=== PATIENT | female | born 1935 | race Caucasian/White ===

== ENCOUNTER 2017-07-30 13:06 | Inpatient (IN) | payer BC, OTHER ==
[~2017-07-30] VITALS: Ht 165.1 cm; Wt 61.3 kg
[2017-07-30] MEDS ORDERED: ONDANSETRON HCL/PF 4 MG/2 ML VIAL ONE (13:19)
--- NOTE | 2017-07-30 13:22 | NUR ---
EKG IN PROGRESS
[2017-07-30 13:29] LABS: BASOPHILS # (AUTO) 0.1 /CMM (0.0-0.2); BASOPHILS % (AUTO) 0.3 % (0.0-2.0); EOSINOPHILS % (AUTO) 0.1 % (0.0-6.0); HEMATOCRIT 45 % (33-45); HEMOGLOBIN 15.4 g/dL (11.5-14.8); LYMPHOCYTES # (AUTO) 0.4 /CMM (0.8-4.8); LYMPHOCYTES % (AUTO) 1.6 % (20.0-44.0); MEAN CORPUSCULAR HEMOGLOBIN 28 PG (26.0-33.0); MEAN CORPUSCULAR HGB CONC 35 g/dl (31.0-36.0); MEAN CORPUSCULAR VOLUME 81 fL (82-100); NEUTROPHILS # (AUTO) 24.6 /CMM (1.8-8.9); PLATELET COUNT (AUTO) 396 /CMM (150-450); RDW COEFFICIENT OF VARIATION 12.8 (11.5-15.0); RED BLOOD CELL COUNT(AUTO) 5.55 MIL/uL (4.0-5.2); WHITE BLOOD COUNT (AUTO) 26.1 K/uL (4.3-11.0)
[2017-07-30] MEDS ORDERED: ONDANSETRON HCL/PF 4 MG/2 ML VIAL IVP ONE (13:30)
[2017-07-30] MEDS ORDERED: IV NS 0.9% 1,000 ML BAG IV ONE ×3 (13:30→15:00)
--- NOTE | 2017-07-30 13:30 | NUR ---
Pt BIB [facility], reports pt has had n/v since 2299 last night. Pt alert but not oriented.
[2017-07-30 13:42] LABS: INR 0.98 (0.87-1.13); PROTHROMBIN TIME 10.2 SECS (9.5-12.7)
[2017-07-30 13:44] LABS: CALCIUM, SERUM 9.8 mg/dL (8.5-10.1); CARBON DIOXIDE 22 mmol/L (21-32); CHLORIDE 101 mmol/L (98-107); CREATININE 1.7 mg/dL (0.6-1.3); GLUCOSE 268 mg/dL (74-106); POTASSIUM 4.5 mmol/L (3.5-5.1); SODIUM SERUM 136 mmol/L (136-145); UREA NITROGEN, BLOOD 49 mg/dL (7-18)
[2017-07-30 13:48] LABS: TROPONIN I 0.062 ng/mL (0.00-0.056)
[2017-07-30 13:50] LABS: ALANINE AMINOTRANSFERASE 67 U/L (12-78); ALBUMIN 3.1 g/dL (3.4-5.0); ALKALINE PHOSPHATASE 93 U/L (46-116); ASPARTATE AMINOTRANSFERASE 62 U/L (15-37); BILIRUBIN,DIRECT 0.1 mg/dL (0.0-0.2); BILIRUBIN,TOTAL 0.4 mg/dL (0.2-1.0); TOTAL PROTEIN, SERUM 7.7 g/dL (6.4-8.2)
--- NOTE | 2017-07-30 14:02 | NUR ---
Pt now A&Ox2, alert and answering questions, currently no nausea. Pt denies CP, SOB, dizziness, n/v, no other complaints, no distress noted.
[2017-07-30 14:39] LABS: APPEARANCE,URINE Cloudy (CLEAR); BILIRUBIN,URINE SMALL (NEGATIVE); BLOOD, URINE Moderate Ery/uL (NEGATIVE); COLOR,URINE Dark (YELLOW); KETONES,URINE 15 (NEGATIVE); LEUKOCYTE ESTERASE ,URINE Small (NEGATIVE); NITRITE, URINE Positive (NEGATIVE); PROTEIN,URINE 100 mg/dl (NEGATIVE); UGLUCOSE 100 MG/DL mg/dL (NEGATIVE)
[2017-07-30 14:54] LABS: BACTERIA,URINE 4+ /HPF (None Seen); SQUAMOUS EPITHELIAL CELL,UR Few /HPF (None Seen)
[2017-07-30] MEDS ORDERED: VANCOMYCIN 1 GM in IV D5W 250 ML IV ONE (15:00)
[2017-07-30] MEDS ORDERED: CEFEPIME 1 GM in IV D5W 50 ML IV ONE (15:00)
--- NOTE | 2017-07-30 15:49 | NUR ---
Called report to floor.
[2017-07-30] MEDS ORDERED: IOHEXOL-350 100 ML VIAL IV ONE (16:12)
[2017-07-30] MEDS ORDERED: IV NS 0.9% 250 ML IV ONE (16:13)
--- NOTE | 2017-07-30 16:30 | NUR ---
Pt taken to [facility]
[2017-07-30] MEDS ORDERED: ENOXAPARIN SODIUM 60 MG/0.6 ML DISP.SYRIN SQ STA (17:39)
[2017-07-30] MEDS ORDERED: ENOXAPARIN SODIUM 60 MG/0.6 ML DISP.SYRIN SQ ONE ×2 (18:14→22:31)
--- NOTE | 2017-07-30 18:30 | NUR ---
Called report to Sharmila.
--- NOTE | 2017-07-30 18:34 | NUR ---
Pt's daughter, Altagracia,
--- NOTE | 2017-07-30 19:00 | NUR ---
DEEPAK RN NOTES PATIENT RECEIVED FROM ER, REPORT OBTAINED BY CHARGE NURSE NIGEL, PATIENT NOW BEING TAKEN TO V/Q NUCLEAR MEDICINE WILL ACCOMPANY PATIENT AND ENDORSE TO VISUAL LEAD. NO SIGNS OF DISTRESS SR 90S ON MONITOR AND SATURATING 98%.
[2017-07-30 20:00] VITALS: BP 119/68
--- NOTE | 2017-07-30 20:00 | NUR ---
RN INITIAL NOTES RECEIVED PT RESTING IN BED, PT A&0X1-2. ON 2L NC NO SOB OR DISTRESS NOTED. SR ON THE TELE MONITOR HR 88. IFEANYI PICC LINE INTACT NO IVF H/L. BED LOCKED AND IN LOWEST POSITION, CALL LIGHT WITHIN REACH, SIDE RAILS UPX3, WILL CONT TO ADELIA.
--- NOTE | 2017-07-30 20:00 | NUR ---
RN INITIAL NOTES PATIENT RECEIVED IN V/Q NUCLEAR MEDICINE, TOOK OVER ACCOMPANYING PATIENT IN V/Q NUCLEAR MEDICINE. NO SIGNS OF DISTRESS SR 90S ON MONITOR AND SATURATING 98%.
--- NOTE | 2017-07-30 20:22 | NUR ---
NM: LUNG V/Q WAS COMPLETED . TECH:RB.
--- NOTE | 2017-07-30 20:30 | NUR ---
RN NOTES PT RETURNED TO [facility] ROOM 114-1, PT HAS A R UA PICC, ON 2L NC, PT RESTING SAFETY IN BED BED IN THE LOWEST LOCKED POSITION, SIDES RAIL UP X3. PLAN OF CARE DISCUSSED WITH PT. WILL CONTINUE TO MONITOR.
[2017-07-30] MEDS ORDERED: ENOXAPARIN SODIUM 60 MG/0.6 ML DISP.SYRIN SQ SCH (22:00)
[2017-07-30] MEDS ORDERED: ACETAMINOPHEN 325 MG TABLET PO PRN (22:00)
[2017-07-30] MEDS ORDERED: LEVOFLOXACIN 500 MG /D5W 100ML 500 MG in PREMIX 1 EA IV SCH (22:00)
[2017-07-30] MEDS ORDERED: ONDANSETRON HCL/PF 4 MG/2 ML VIAL IV PRN (22:00)
[2017-07-30] MEDS ORDERED: IV NS 0.9% 1,000 ML BAG IV PRN (22:30)
[2017-07-30] MEDS ORDERED: PANTOPRAZOLE 40 MG VIAL ONE (22:31)
[2017-07-30] MEDS ORDERED: LEVOFLOXACIN 500 MG /D5W 100ML 100 ML IV ONE (22:31)
[2017-07-30] MEDS: PANTOPRAZOLE 40 MG VIAL IV SCH (22:39)
[2017-07-31] VITALS: BP 120/64
[2017-07-31 04:00] VITALS: BP 110/68
[2017-07-31 06:00] VITALS: BP 110/68
--- NOTE | 2017-07-31 06:39 | NUR ---
RN CLOSING NOTES PT RESTING IN BED, A&O1-2, NO CHANGES IN OT CONDITION OVER NIGHT. PT HAD BMX6 C-DIFF SAMPLE SENT PT IN ISOLATION. ALL MEDS AND NEEDS ATTENDED. ALL SAFETY MEASURES TAKEN. WILL ENDORSE TO AM RN.
--- NOTE | 2017-07-31 07:26 | NUR ---
RN NOTES FAMILY MEMBERS BROUGHT IN A COPY OF PTS HOME MEDS, A COPY WAS GIVEN TO THE AM RN SO THAT SHE COULD ENTER IT IN SYSTEM.
--- NOTE | 2017-07-31 07:38 | NUR ---
RN NOTES PT A&0X1-2. ON 2L NC NO SOB OR DISTRESS NOTED. SR ON THE TELE MONITOR HR 88. IFEANYI PICC LINE INTACT NO IVF. BED LOCKED AND IN LOWEST POSITION, CALL LIGHT WITHIN REACH, SIDE RAILS UPX3, WILL CONT TO ADELIA.
[2017-07-31 07:55] LABS: BASOPHILS % (AUTO) 0.1 % (0.0-2.0); HEMATOCRIT 33 % (33-45); HEMOGLOBIN 11.1 g/dL (11.5-14.8); LYMPHOCYTES # (AUTO) 0.7 /CMM (0.8-4.8); LYMPHOCYTES % (AUTO) 2.8 % (20.0-44.0); MEAN CORPUSCULAR HEMOGLOBIN 28 PG (26.0-33.0); MEAN CORPUSCULAR HGB CONC 34 g/dl (31.0-36.0); MEAN CORPUSCULAR VOLUME 82 fL (82-100); MONOCYTES # (AUTO) 1.9 /CMM (0.1-1.30); MONOCYTES % (AUTO) 7.3 % (2.0-12.0); NEUTROPHILS # (AUTO) 23.1 /CMM (1.8-8.9); NEUTROPHILS % (AUTO) 89.8 % (43.0-81.0); PLATELET COUNT (AUTO) 265 /CMM (150-450); RDW COEFFICIENT OF VARIATION 13.4 (11.5-15.0); RED BLOOD CELL COUNT(AUTO) 3.96 MIL/uL (4.0-5.2); WHITE BLOOD COUNT (AUTO) 25.8 K/uL (4.3-11.0)
[2017-07-31 08:00] VITALS: BP 113/63
[2017-07-31] MEDS ORDERED: RALO60TA PO (08:18)
[2017-07-31] MEDS ORDERED: CITA10TA9 PO (08:18)
[2017-07-31] MEDS ORDERED: LEVO25TA9 PO (08:18)
[2017-07-31] MEDS ORDERED: CALC-1026 PO (08:18)
[2017-07-31] MEDS ORDERED: SPIR25TA PO (08:18)
[2017-07-31] MEDS ORDERED: ASPI-1169 PO (08:18)
[2017-07-31] MEDS ORDERED: CHOL200026 PO (08:18)
[2017-07-31] MEDS ORDERED: ATOR20TA PO (08:18)
[2017-07-31] MEDS ORDERED: DONE5TAB34 PO (08:18)
[2017-07-31 08:37] LABS: CALCIUM, SERUM 8.4 mg/dL (8.5-10.1); CARBON DIOXIDE 20 mmol/L (21-32); CHLORIDE 110 mmol/L (98-107); CREATININE 0.9 mg/dL (0.6-1.3); GLUCOSE 112 mg/dL (74-106); POTASSIUM 3.9 mmol/L (3.5-5.1); SODIUM SERUM 142 mmol/L (136-145); UREA NITROGEN, BLOOD 34 mg/dL (7-18)
[2017-07-31] MEDS: METRONIDAZOLE 500MG/ NS 100ML 500 MG in PREMIX 1 EA IV SCH ×2 (09:40→21:37)
[2017-07-31] MEDS: DONEPEZIL 5 MG TABLET PO SCH (09:40)
[2017-07-31] MEDS: ASPIRIN 81 MG TAB.CHEW PO SCH (09:41)
[2017-07-31] MEDS: CITALOPRAM HYDROBROMIDE 10 MG TABLET PO SCH ×2 (09:41→21:43)
[2017-07-31] MEDS: RALOXIFENE 60 MG TABLET PO SCH (09:41)
[2017-07-31] MEDS: CALCIUM CARBONATE (1250) 500 MG TABLET PO SCH ×2 (09:41→16:10)
[2017-07-31] MEDS: LEVOTHYROXINE SODIUM 25 MCG TABLET PO SCH (09:41)
[2017-07-31] MEDS: CHOLECALCIFEROL 1,000 UNIT TABLET (VIT D3) PO SCH (09:43)
[2017-07-31 13:17] LABS: BAND % (MANUAL) 2 % (0.0-5.0); LYMPHOCYTES % (MANUAL) 4 % (16-48); MONOCYTES % (MANUAL) 9 % (0-11.0); NEUTROPHILS % (MANUAL) 85 (42-76)
[2017-07-31 16:00] VITALS: BP 116/62
--- NOTE | 2017-07-31 18:48 | NUR ---
RN NOTES PT REMAINED IN STABLE CONDITION, ALL NEEDS MET, NO SIGNIFICANT CHANGES, WILL ENDORSE TO ONCOMING SHIFT.
[2017-07-31 20:00] VITALS: BP 113/63
[2017-07-31] MEDS: ENOXAPARIN SODIUM 60 MG/0.6 ML DISP.SYRIN SQ SCH (21:36)
[2017-07-31] MEDS: LEVOFLOXACIN 250 MG /D5W 50 ML 250 MG in PREMIX 1 EA IV SCH (21:40)
[2017-07-31] MEDS: PANTOPRAZOLE 40 MG VIAL IV SCH (21:41)
[2017-07-31] MEDS: ATORVASTATIN 10 MG TABLET PO SCH (21:43)
[2017-07-31] MEDS: IV NS 0.9% 1,000 ML IV PRN (21:52)
[2017-08-01] VITALS: BP 113/63
[2017-08-01] MEDS: HYDROCODONE/APAP 5/325MG 1 EACH TABLET PO PRN (00:44)
[2017-08-01 04:00] VITALS: BP 102/57
[2017-08-01] MEDS: METRONIDAZOLE 500MG/ NS 100ML 500 MG in PREMIX 1 EA IV SCH ×3 (04:03→21:58)
[2017-08-01 08:00] VITALS: BP 107/59
[2017-08-01 08:28] LABS: BASOPHILS # (AUTO) 0.1 /CMM (0.0-0.2); BASOPHILS % (AUTO) 0.7 % (0.0-2.0); EOSINOPHILS % (AUTO) 0.1 % (0.0-6.0); HEMATOCRIT 28 % (33-45); HEMOGLOBIN 9.4 g/dL (11.5-14.8); LYMPHOCYTES # (AUTO) 1.2 /CMM (0.8-4.8); LYMPHOCYTES % (AUTO) 6.3 % (20.0-44.0); MEAN CORPUSCULAR HEMOGLOBIN 28 PG (26.0-33.0); MEAN CORPUSCULAR HGB CONC 34 g/dl (31.0-36.0); MEAN CORPUSCULAR VOLUME 82 fL (82-100); MONOCYTES # (AUTO) 1.2 /CMM (0.1-1.30); MONOCYTES % (AUTO) 6.3 % (2.0-12.0); NEUTROPHILS # (AUTO) 16.5 /CMM (1.8-8.9); NEUTROPHILS % (AUTO) 86.6 % (43.0-81.0); PLATELET COUNT (AUTO) 247 /CMM (150-450); RDW COEFFICIENT OF VARIATION 13.6 (11.5-15.0); RED BLOOD CELL COUNT(AUTO) 3.44 MIL/uL (4.0-5.2); WHITE BLOOD COUNT (AUTO) 19.1 K/uL (4.3-11.0)
[2017-08-01 08:36] LABS: CALCIUM, SERUM 7.9 mg/dL (8.5-10.1); CARBON DIOXIDE 23 mmol/L (21-32); CHLORIDE 111 mmol/L (98-107); CREATININE 0.8 mg/dL (0.6-1.3); GLUCOSE 104 mg/dL (74-106); POTASSIUM 3.4 mmol/L (3.5-5.1); SODIUM SERUM 141 mmol/L (136-145); UREA NITROGEN, BLOOD 22 mg/dL (7-18)
[2017-08-01] MEDS: ASPIRIN 81 MG TAB.CHEW PO SCH (08:41)
[2017-08-01] MEDS: DONEPEZIL 5 MG TABLET PO SCH (08:41)
[2017-08-01] MEDS: CALCIUM CARBONATE (1250) 500 MG TABLET PO SCH ×2 (08:42→16:23)
[2017-08-01] MEDS: LEVOTHYROXINE SODIUM 25 MCG TABLET PO SCH (08:42)
[2017-08-01] MEDS: CHOLECALCIFEROL 1,000 UNIT TABLET (VIT D3) PO SCH (08:42)
[2017-08-01] MEDS: RALOXIFENE 60 MG TABLET PO SCH (08:42)
[2017-08-01] MEDS: PANTOPRAZOLE 40 MG VIAL IV SCH (08:42)
[2017-08-01 11:11] LABS: BAND % (MANUAL) 4 % (0.0-5.0); LYMPHOCYTES % (MANUAL) 12 % (16-48); MONOCYTES % (MANUAL) 2 % (0-11.0); NEUTROPHILS % (MANUAL) 82 (42-76)
[2017-08-01] MEDS ORDERED: POTASSIUM CHLORIDE 20 MEQ POWDER PACKET NG SCH (11:30)
[2017-08-01 16:00] VITALS: BP 110/71
[2017-08-01] MEDS: IV NS 0.9% 1,000 ML IV PRN (16:16)
[2017-08-01] MEDS: BOOST PLUS FOOD-VANILLA 237 ML BOX PO SCH (18:16)
--- NOTE | 2017-08-01 19:30 | NUR ---
RN OPENING NOTES: RECEIVED PATIENT ON BED AWAKE ALERT X1-2 WTIH PERIODS OF CONFUSION. ON ROOM AIR NOT IN APPARENT DISTRESS. MONITORED O2 SATS. IFEANYI PICC LINE INTACT, IVF INFUSING ORDERED. SAFETY MEASURES ENSURED. BED ALARM ON. MONITORED FOR FREQUENT LOOSE STOOLS. TO RENDER SKIN CARE PRN. ENCOURAGED PO INTAKE. CALL LIGHT IN REACH. CONTINUOUSLY MONITORED PATIENT.
[2017-08-01 20:00] VITALS: BP 107/53
[2017-08-01] MEDS: CITALOPRAM HYDROBROMIDE 10 MG TABLET PO SCH (21:56)
[2017-08-01] MEDS: ATORVASTATIN 10 MG TABLET PO SCH (21:56)
[2017-08-01] MEDS: ENOXAPARIN SODIUM 60 MG/0.6 ML DISP.SYRIN SQ SCH (21:57)
[2017-08-01] MEDS: LEVOFLOXACIN 250 MG /D5W 50 ML 250 MG in PREMIX 1 EA IV SCH (23:12)
[2017-08-02] MEDS: HYDROCODONE/APAP 5/325MG 1 EACH TABLET PO PRN (00:53)
[2017-08-02 04:00] VITALS: BP 108/60
[2017-08-02] MEDS: METRONIDAZOLE 500MG/ NS 100ML 500 MG in PREMIX 1 EA IV SCH ×2 (05:24→12:24)
[2017-08-02] MEDS: IV NS 0.9% 1,000 ML IV PRN (05:25)
[2017-08-02 06:40] LABS: BASOPHILS # (AUTO) 0.1 /CMM (0.0-0.2); BASOPHILS % (AUTO) 0.7 % (0.0-2.0); EOSINOPHILS # (AUTO) 0.1 /CMM (0.0-0.7); EOSINOPHILS % (AUTO) 0.7 % (0.0-6.0); HEMATOCRIT 29 % (33-45); HEMOGLOBIN 9.9 g/dL (11.5-14.8); LYMPHOCYTES # (AUTO) 1.5 /CMM (0.8-4.8); LYMPHOCYTES % (AUTO) 10.2 % (20.0-44.0); MEAN CORPUSCULAR HEMOGLOBIN 28 PG (26.0-33.0); MEAN CORPUSCULAR HGB CONC 34 g/dl (31.0-36.0); MEAN CORPUSCULAR VOLUME 82 fL (82-100); MONOCYTES # (AUTO) 0.8 /CMM (0.1-1.30); MONOCYTES % (AUTO) 5.6 % (2.0-12.0); NEUTROPHILS # (AUTO) 12.1 /CMM (1.8-8.9); NEUTROPHILS % (AUTO) 82.8 % (43.0-81.0); PLATELET COUNT (AUTO) 260 /CMM (150-450); RDW COEFFICIENT OF VARIATION 13.3 (11.5-15.0); RED BLOOD CELL COUNT(AUTO) 3.53 MIL/uL (4.0-5.2); WHITE BLOOD COUNT (AUTO) 14.7 K/uL (4.3-11.0)
--- NOTE | 2017-08-02 06:52 | NUR ---
RN CLOSING NOTES: NO ACUTE CHANGES OCCURRED OVERNIGHT. PATIENT REMAINED WITH PERIOD OF CONFUSION. WITH ONLY X1 WATERY STOOL ( MIN TO MODERATE AMOUNT). SKIN CARE RENDERED. SAFETY MEASURES ENSURED. DUE MEDS GIVEN. TO ENDORSED TO AM SHIFT RN.
[2017-08-02 07:00] LABS: TROPONIN I 0.029 ng/mL (0.00-0.056)
[2017-08-02 07:07] LABS: CALCIUM, SERUM 7.7 mg/dL (8.5-10.1); CARBON DIOXIDE 21 mmol/L (21-32); CHLORIDE 112 mmol/L (98-107); CREATININE 0.8 mg/dL (0.6-1.3); GLUCOSE 90 mg/dL (74-106); POTASSIUM 3.2 mmol/L (3.5-5.1); SODIUM SERUM 144 mmol/L (136-145); UREA NITROGEN, BLOOD 17 mg/dL (7-18)
[2017-08-02 07:19] LABS: BAND % (MANUAL) 2 % (0.0-5.0); LYMPHOCYTES % (MANUAL) 7 % (16-48); MONOCYTES % (MANUAL) 9 % (0-11.0); NEUTROPHILS % (MANUAL) 82 (42-76)
[2017-08-02 08:00] VITALS: BP 111/74
--- NOTE | 2017-08-02 08:00 | NUR ---
RN MS NOTES RECEIVED PT RESTING IN BED, PT A&0X1-2. ON 2L NC NO SOB OR DISTRESS NOTED.HR 88. IFEANYI PICC LINE INTACT NO IVF H/L. BED LOCKED AND IN LOWEST POSITION, CALL LIGHT WITHIN REACH, SIDE RAILS UPX3, WILL CONT TO ADELIA CLOSELY NO SOB NOTED . RT UPPER ARM PICC LINE ON PLACE, ON IVF ORDERED , HAVING POOR APPETITE, WILL CONT TO MONITOR
[2017-08-02] MEDS: ASPIRIN 81 MG TAB.CHEW PO SCH (09:16)
[2017-08-02] MEDS: CHOLECALCIFEROL 1,000 UNIT TABLET (VIT D3) PO SCH (09:16)
[2017-08-02] MEDS: RALOXIFENE 60 MG TABLET PO SCH (09:16)
[2017-08-02] MEDS: DONEPEZIL 5 MG TABLET PO SCH (09:16)
[2017-08-02] MEDS: CALCIUM CARBONATE (1250) 500 MG TABLET PO SCH ×2 (09:16→16:39)
[2017-08-02] MEDS: BOOST PLUS FOOD-VANILLA 237 ML BOX PO SCH ×2 (09:17→16:39)
[2017-08-02] MEDS: LEVOTHYROXINE SODIUM 25 MCG TABLET PO SCH (09:27)
[2017-08-02 10:00] VITALS: BP 111/74
[2017-08-02 12:00] VITALS: BP 111/74
[2017-08-02] MEDS ORDERED: POTASSIUM CHLORIDE 20 MEQ POWDER PACKET GT SCH (12:30)
--- NOTE | 2017-08-02 13:00 | NUR ---
CHIEF MEDICAL DIRECTOR NOTE HAVING DINNER BUT HAVING FED BY STUFF HAS POOR APATITE , KEEP CLEAN DRY , ALL NEEDS ATTENDED
[2017-08-02 16:00] VITALS: BP 113/65
--- NOTE | 2017-08-02 16:51 | NUR ---
MS RN NOTE PER HOSPITAL PROTOCOL AND ID NURSE NEGATIVE FOR C DIF, C DIF ISOLATION D\RACHAEL ,DR IVEY AWARE
[2017-08-02] MEDS: MEGESTROL ACETATE SUSP 400 MG/10 ML UDC PO SCH (17:44)
--- NOTE | 2017-08-02 19:18 | NUR ---
MS RN NOTE FED BY STUFF, ALL NEEDS ATTENDED, NOT IN ACUTE DISTRESS
--- NOTE | 2017-08-02 19:30 | NUR ---
Received patient in the bed.No unusual signs or symptoms observed or reported,no signs of discomfort or distress.Daughter at bedside ask to see me.At room she ask if patient could get regular food since she is on clear liquid.Explained to daughter why she is on that diet and so she stop feeding patient.
[2017-08-02 20:00] VITALS: BP 119/70
--- NOTE | 2017-08-02 21:05 | NUR ---
Returned to room and found the PICC line lying in the bed.Inserted a HL on the left arm but the NA called me few hours later to informed me that patient had removed the HL.Checked to find that it had indeed been.
[2017-08-02] MEDS: ENOXAPARIN SODIUM 60 MG/0.6 ML DISP.SYRIN SQ SCH (21:25)
[2017-08-02] MEDS: PANTOPRAZOLE 40 MG VIAL IV SCH (21:35)
[2017-08-02] MEDS: ATORVASTATIN 10 MG TABLET PO SCH (21:36)
[2017-08-02] MEDS: CITALOPRAM HYDROBROMIDE 10 MG TABLET PO SCH (21:36)
[2017-08-02] MEDS: LEVOFLOXACIN 250 MG /D5W 50 ML 250 MG in PREMIX 1 EA IV SCH (21:37)
--- NOTE | 2017-08-02 23:00 | NUR ---
no problems,.restless and agitated at times
--- NOTE | 2017-08-03 02:49 | NUR ---
Patient had become restless and agitated at timed that I attempted to call the doctor for medication but one of the nurses interacted with her and she just calm down,no problems
[2017-08-03 04:00] VITALS: BP 113/61
[2017-08-03 07:20] LABS: CALCIUM, SERUM 8.1 mg/dL (8.5-10.1); CARBON DIOXIDE 23 mmol/L (21-32); CHLORIDE 108 mmol/L (98-107); CREATININE 0.7 mg/dL (0.6-1.3); GLUCOSE 92 mg/dL (74-106); MAGNESIUM 1.7 mg/dL (1.8-2.4); PHOSPHORUS 1.7 mg/dL (2.5-4.9); POTASSIUM 3.5 mmol/L (3.5-5.1); SODIUM SERUM 140 mmol/L (136-145); UREA NITROGEN, BLOOD 10 mg/dL (7-18)
[2017-08-03 08:00] VITALS: BP 102/54
[2017-08-03] MEDS: BOOST PLUS FOOD-VANILLA 237 ML BOX PO SCH ×2 (08:00→17:53)
--- NOTE | 2017-08-03 08:00 | NUR ---
MS RN NOTES RECEIVED PT ON BED SLEEPING. ALERT ORIENT X2. EPISODES OF CONFUSION AND AGITATION. NO IV ACCESS. HEAD OF BED ELEVATED. SIDE RAILS UP. ON ROOM AIR TOLERATING WELL. WILL CONTINUE TO MONITOR PT CLOSELY.
[2017-08-03] MEDS: LEVOTHYROXINE SODIUM 25 MCG TABLET PO SCH (09:29)
[2017-08-03] MEDS: CHOLECALCIFEROL 1,000 UNIT TABLET (VIT D3) PO SCH (09:29)
[2017-08-03] MEDS: MEGESTROL ACETATE SUSP 400 MG/10 ML UDC PO SCH ×2 (09:29→17:53)
[2017-08-03] MEDS: ASPIRIN 81 MG TAB.CHEW PO SCH (09:30)
[2017-08-03] MEDS: CALCIUM CARBONATE (1250) 500 MG TABLET PO SCH ×2 (09:30→17:53)
[2017-08-03] MEDS: DONEPEZIL 5 MG TABLET PO SCH (09:30)
[2017-08-03] MEDS: RALOXIFENE 60 MG TABLET PO SCH (09:30)
[2017-08-03] MEDS ORDERED: Magnesium 1GM/D5W 100ML PREMIX 100 ML IV SCH (12:26)
[2017-08-03] MEDS ORDERED: MAGNESIUM OXIDE 400 MG TABLET PO ONE (15:30)
[2017-08-03 16:00] VITALS: BP 109/66
[2017-08-03] MEDS ORDERED: NEUTRA PHOS 1 POWD.PACKET NG ONE (19:00)
--- NOTE | 2017-08-03 19:12 | NUR ---
MS RN NOTES PT AGITATED, REFUSING TO TAKE NEUTRA PHOSPHO. WILL ENDORSE TO THE PM NURSE TO TRY TO ASK THE PT TO TAKE IT.
--- NOTE | 2017-08-03 19:12 | NUR ---
MS RN NOTES NO ACUTE CHANGES NOTED DURING THE SHIFT. ON ROOM AIR SATURATING WELL. IFEANYI MIDLINE #20 NO REDNESS ON SITE. DUE MEDS GIVEN. PROVIDED COMFORT. HEAD OF BED ELEVATED. SIDE RAILS UP.WILL ENDORSED TO THE PM NURSE FOR CONTINUITY OF CARE.
--- NOTE | 2017-08-03 19:30 | NUR ---
MS RN INITIAL NOTES RECEIVED PATIENT AWAKE A/OX1, DENIES PAIN OR DISCOMFORT. NO RESPIRATORY DISTRESS NOTED. ON ROOM AIR. SKIN WARM AND DRY TO TOUCH. FALL PRECAUTIONS OBSERVED. SIDE RAILS UP AND LOCKED. BED KEPT AT LOWEST POSITION. HOB ELEVATED. CALL LIGHT KEPT WITHIN EASY REACH. WILL CONTINUE TO MONITOR.
[2017-08-03 20:00] VITALS: BP 112/62
[2017-08-03] MEDS: ATORVASTATIN 10 MG TABLET PO SCH (21:31)
[2017-08-03] MEDS: CITALOPRAM HYDROBROMIDE 10 MG TABLET PO SCH (21:31)
[2017-08-03] MEDS: LEVOFLOXACIN 250 MG /D5W 50 ML 250 MG in PREMIX 1 EA IV SCH (21:31)
[2017-08-03] MEDS: PANTOPRAZOLE 40 MG VIAL IV SCH (21:33)
[2017-08-03] MEDS: ENOXAPARIN SODIUM 60 MG/0.6 ML DISP.SYRIN SQ SCH (21:33)
[2017-08-03] MEDS: IV NS 0.9% 1,000 ML IV PRN (22:25)
[2017-08-04 04:00] VITALS: BP 119/72
[2017-08-04 07:01] LABS: CALCIUM, SERUM 7.7 mg/dL (8.5-10.1); CARBON DIOXIDE 23 mmol/L (21-32); CHLORIDE 106 mmol/L (98-107); CREATININE 0.7 mg/dL (0.6-1.3); GLUCOSE 85 mg/dL (74-106); MAGNESIUM 1.6 mg/dL (1.8-2.4); PHOSPHORUS 1.9 mg/dL (2.5-4.9); SODIUM SERUM 139 mmol/L (136-145); UREA NITROGEN, BLOOD 8 mg/dL (7-18)
[2017-08-04 07:03] LABS: POTASSIUM 2.7 mmol/L (3.5-5.1)
--- NOTE | 2017-08-04 07:30 | NUR ---
MS RN OPENING NOTE PATIENT IS ALERT AND ORIENTED x1-2, FORGETFUL AT TIMES NEEDS REORIENTATION. NO PAIN AT THIS TIME. NO SOB OR DISTRESS NOTED. CALL LIGHT WITHIN REACH. SAFETY MEASURES IMPLEMENTED. ABLE TO COMMUNICATE NEEDS. ON FULL LIQUID DIET, WILL ENCOURAGE PO INTAKE THROUGHOUT SHIFT. IFEANYI MIDLINE INTACT AND PATENT NO REDNESS OR SWELLING NOTED, IV FLUIDS RUNNING AT THIS TIME 50 ML/HR TOLERATING WELL. POTASSIUM-2.7 AND MAG-1.[address] FOR ORDERS. LABS THIS MORNING AWAITING RESULTS. WILL CONTINUE TO MONITOR THROUGHOUT SHIFT
--- NOTE | 2017-08-04 07:52 | NUR ---
MS RN CLOSING NOTES NO SIGNIFICANT CHANGES OVERNIGHT. PATIENT A/OX2, PLEASANTLY CONFUSED. NO RESPIRATORY DISTRESS NOTED, ON RA. NO C/O PAIN OR DISCOMFORT. RECEIVED CRITICAL FOR POTASSIUM OF 2.7, RELAYED TO AM NURSE TO FOLLOW UP. KEPT CLEAN AND DRY. SAFETY MEASURES MET. TURNED AND REPOSITIONED Q2 AND PRN. SIDE RAILS UP AND LOCKED. BED KEPT AT LOWEST POSITION. CALL LIGHT KEPT WITHIN EASY REACH. CONTINUITY OF CARE ENDORSED TO AM NURSE.
[2017-08-04] MEDS: MEGESTROL ACETATE SUSP 400 MG/10 ML UDC PO SCH ×2 (08:22→16:22)
[2017-08-04] MEDS: LEVOTHYROXINE SODIUM 25 MCG TABLET PO SCH (08:22)
[2017-08-04] MEDS: BOOST PLUS FOOD-VANILLA 237 ML BOX PO SCH ×2 (08:22→16:22)
[2017-08-04] MEDS: ASPIRIN 81 MG TAB.CHEW PO SCH (08:22)
[2017-08-04] MEDS: CHOLECALCIFEROL 1,000 UNIT TABLET (VIT D3) PO SCH (08:22)
[2017-08-04] MEDS: RALOXIFENE 60 MG TABLET PO SCH (08:22)
[2017-08-04] MEDS: DONEPEZIL 5 MG TABLET PO SCH (08:22)
[2017-08-04] MEDS: CALCIUM CARBONATE (1250) 500 MG TABLET PO SCH ×2 (08:22→16:22)
--- NOTE | 2017-08-04 09:06 | NUR ---
MS RN NOTE CALLED DR. FORDE IN REGARDS TO POTASSIUM AND MAGNESIUM LEVELS. AWAITING CALL BACK FOR ORDERS.
[2017-08-04] MEDS: Magnesium 1GM/D5W 100ML PREMIX 100 ML IV SCH ×4 (11:24→15:13)
--- NOTE | 2017-08-04 11:25 | NUR ---
MS RN NOTE MAGNESIUM-1.6 REPLACING AT THIS TIME. WILL CONTINUE TO MONITOR. STILL AWAITING ORDERS TO REPLACE POTASSIUM
[2017-08-04 12:18] VITALS: BP 104/67
[2017-08-04] MEDS: LACTOBACILLUS RHAMNOSUS GG 1 EACH CAP.SPRINK PO SCH ×2 (13:23→16:22)
[2017-08-04] MEDS: Potassium Phosphate meq 11 MEQ in IV D5W 100 ML IV SCH ×2 (14:04→17:18)
--- NOTE | 2017-08-04 18:31 | NUR ---
MS RN CLOSING NOTE NO NEW CHANGES AT THIS TIME. NO PAIN NOTED. NO SOB OR DISTRESS NOTED. CALL LIGHT WITHIN REACH AT ALL TIMES. SAFETY MEASURES IMPLEMENTED. ABLE TO COMMUNICATE NEEDS. ALL DUE MEDICATIONS GIVEN ORDERED. MAGNESIUM REPLACED X4 BAGS, POTASSIUM PHOSPHATE RUNNING AT THIS TIME, TOLERATING WELL. AWAITING PT EVAL. POSSIBLE DISCHARGE HOME TOMORROW. WILL ENDORSE TO HAND I TUBE BENDER NURSE FOR JEMMA
--- NOTE | 2017-08-04 19:15 | NUR ---
MS RN NOTES RECEIVED PT IN BED, RESTING AT THIS TIME, AROUSES EASILY. VERBALLY RESPONSIVE, A/O X1. NO DISTRESS, NO SOB NOTED AT THIS TIME. RESPIRATION IS EVEN AND UNLABORED. IFEANYI MIDLINE INTACT AND PATENT , NO S/S OF INFILTRATION NOTED. IVF INFUSING WELL. ALL NEEDS ATTENDEE AND MET. COMFORTABLE VERBALIZED. SAFETY PRECAUTIONS OBSERVED. CALL LIGHT WITHIN REACH. WILL CONT TO MONITOR.
[2017-08-04 20:00] VITALS: BP 101/67
[2017-08-04] MEDS: ENOXAPARIN SODIUM 60 MG/0.6 ML DISP.SYRIN SQ SCH (21:34)
[2017-08-04] MEDS: LEVOFLOXACIN 250 MG /D5W 50 ML 250 MG in PREMIX 1 EA IV SCH (21:35)
[2017-08-04] MEDS: CITALOPRAM HYDROBROMIDE 10 MG TABLET PO SCH (21:35)
[2017-08-04] MEDS: ATORVASTATIN 10 MG TABLET PO SCH (21:35)
[2017-08-04] MEDS: PANTOPRAZOLE 40 MG VIAL IV SCH (21:39)
[2017-08-04] MEDS: HYDROCODONE/APAP 5/325MG 1 EACH TABLET PO PRN (23:33)
[2017-08-05] MEDS: IV NS 0.9% 1,000 ML IV PRN (05:30)
--- NOTE | 2017-08-05 06:30 | NUR ---
MS RN NOTES PT IN BED, ASLEEP AT THIS TIME, AROUSES EASILY. VERBALLY RESPONSIVE, A/O X1. NO DISTRESS, NO SOB NOTED AT THIS TIME. RESPIRATION IS EVEN AND UNLABORED. IFEANYI MIDLINE INTACT AND PATENT , NO S/S OF INFILTRATION NOTED. IVF INFUSING WELL. ALL NEEDS ATTENDED AND MET. COMFORTABLE VERBALIZED. SAFETY PRECAUTIONS OBSERVED. CALL LIGHT WITHIN REACH. WILL CONT ENDORSE TO NEXT SHIFT FOR JEMMA.
[2017-08-05 06:34] LABS: BASOPHILS % (AUTO) 0.3 % (0.0-2.0); EOSINOPHILS # (AUTO) 0.1 /CMM (0.0-0.7); EOSINOPHILS % (AUTO) 1.4 % (0.0-6.0); HEMATOCRIT 32 % (33-45); HEMOGLOBIN 10.7 g/dL (11.5-14.8); LYMPHOCYTES # (AUTO) 1.5 /CMM (0.8-4.8); MEAN CORPUSCULAR HEMOGLOBIN 28 PG (26.0-33.0); MEAN CORPUSCULAR HGB CONC 34 g/dl (31.0-36.0); MEAN CORPUSCULAR VOLUME 81 fL (82-100); MONOCYTES # (AUTO) 0.9 /CMM (0.1-1.30); MONOCYTES % (AUTO) 9.5 % (2.0-12.0); NEUTROPHILS # (AUTO) 6.4 /CMM (1.8-8.9); NEUTROPHILS % (AUTO) 71.8 % (43.0-81.0); PLATELET COUNT (AUTO) 347 /CMM (150-450); RDW COEFFICIENT OF VARIATION 13.7 (11.5-15.0); RED BLOOD CELL COUNT(AUTO) 3.89 MIL/uL (4.0-5.2)
[2017-08-05 06:50] LABS: CALCIUM, SERUM 7.9 mg/dL (8.5-10.1); CARBON DIOXIDE 24 mmol/L (21-32); CHLORIDE 106 mmol/L (98-107); CREATININE 0.7 mg/dL (0.6-1.3); GLUCOSE 88 mg/dL (74-106); MAGNESIUM 2.1 mg/dL (1.8-2.4); PHOSPHORUS 2.7 mg/dL (2.5-4.9); POTASSIUM 2.9 mmol/L (3.5-5.1); SODIUM SERUM 139 mmol/L (136-145); UREA NITROGEN, BLOOD 6 mg/dL (7-18)
[2017-08-05 07:01] LABS: IRON, SERUM 44 ug/dl (50-175); TOTAL IRON BINDING CAPACITY 193 ug/dl (250-450)
[2017-08-05 08:00] VITALS: BP_SYST 114; BP_SYST 141; BP_DIAS 71; BP_DIAS 73
--- NOTE | 2017-08-05 08:15 | NUR ---
MS RN OPENING NOTE RECEIVED BEDSIDE SBAR REPORT ON THE PATIENT. PATIENT IS A/O X2, FORGETFUL, CONFUSED IN COMPLEX SITUATIONS. AWAKE AND RESPONSIVE. DENIES PAIN/DISCOMFORT AT THIS TIME. CHEST IS RISING EQUALLY BILATERALLY. SPO2 97% ON RA. PATIENT IS IN BED. BED IS LOCKED, IN LOWEST POSITION, SIDE RAILS UP X3, BED ALARM IS ON. CALL LIGHT WITHIN REACH. PATIENT IS EDUCATED TO USE THE CALL LIGHT TO CALL FOR ASSISTANCE VIA TEACH BACK METHOD. VERBALIZED UNDERSTANDING. ALL NEEDS ARE MET AT THIS TIME. WILL CONTINUE TO ASSESS/MONITOR THROUGHOUT THE SHIFT.
[2017-08-05] MEDS: BOOST PLUS FOOD-VANILLA 237 ML BOX PO SCH (09:23)
[2017-08-05] MEDS: CALCIUM CARBONATE (1250) 500 MG TABLET PO SCH (09:23)
[2017-08-05] MEDS: LEVOTHYROXINE SODIUM 25 MCG TABLET PO SCH (09:23)
[2017-08-05] MEDS: LACTOBACILLUS RHAMNOSUS GG 1 EACH CAP.SPRINK PO SCH (09:25)
[2017-08-05] MEDS: ASPIRIN 81 MG TAB.CHEW PO SCH (09:25)
[2017-08-05] MEDS: MEGESTROL ACETATE SUSP 400 MG/10 ML UDC PO SCH (09:25)
[2017-08-05] MEDS: CHOLECALCIFEROL 1,000 UNIT TABLET (VIT D3) PO SCH (09:28)
[2017-08-05] MEDS: DONEPEZIL 5 MG TABLET PO SCH (09:28)
[2017-08-05] MEDS: RALOXIFENE 60 MG TABLET PO SCH (09:28)
[2017-08-05] MEDS ORDERED: POTASSIUM CHLORIDE 20 MEQ TAB.PRT.SR PO ONE (10:30)
[2017-08-05] MEDS ORDERED: POTASSIUM CHLORIDE 20 MEQ POWDER PACKET GT ONE (10:30)
[2017-08-05] MEDS ORDERED: MEGE400O4 PO (10:48)
[2017-08-05] MEDS ORDERED: Boost Plus Food-Vanilla PO (10:48)
[2017-08-05] MEDS ORDERED: LACT1CAP72 PO (10:48)
[2017-08-05] MEDS ORDERED: RIVA10TA PO (10:48)
[2017-08-05] MEDS: POTASSIUM CHLORIDE 20 MEQ POWDER PACKET PO SCH ×3 (11:12→13:31)
[2017-08-05 11:24] LABS: FERRITIN 131 ng/mL (8-388)
[2017-08-05 14:00] VITALS: BP 120/69
--- NOTE | 2017-08-05 14:40 | NUR ---
MS FLAKE MILLER WHEAT AND OATS NOTE DISCHARGE ORDER RECEIVED. DISCHARGE INSTRUCTIONS DISCUSSED WITH THE PATIENT AND THE DAUGHTER BHAVESH OVER THE PHONE. MIDLINE IV CATHETER REMOVED WITH THE TIP INTACT. OCLUSIVE DRESSING APPLIED. VS WNL. PATIENT SATURATING 98% ON RA. ALL BELONGINGS ACCOUNTED FOR. PATIENT LEFT THE UNIT IN STABLE CONDITION ACCOMPANIED BY THE AMBULANCE STAFF. DISCHARGE PAPERWORK SENT WITH PATIENT/AMBULANCE STAFF. JENNIFER THE DAUGHTER INFORMED OVER THE PHONE. PATIENT LEFT THE UNIT IN STABLE CONDITION.
--- NOTE | 2017-08-05 16:55 | NUR ---
PATIENT'S DAUGHTER CALLED STATING PATIENT PRESENTS WITH BLOODY DISCHARGE IN THE DIAPER. UPON DISCHARGE PATIENT PRESENTED WITH NO BLOOD DISCHARGE. THE DIAPER WAS CHANGED PRIOR TO DISCHARGE. DAUGHTER WAS ADVISED TO TAKE THE PATIENT TO EMERGENCY ROOM.
--- NOTE | 2017-08-05 16:57 | NUR ---
PATIENT'S DAUGHTER CALLED BACK STATING THAT THE PATIENT WAS CLEANED AND DIAPER WAS CHANGED. PER DAUGHTER'S REPORT THE BLOODY DISCHARGE STOPPED.
[2017-08-05] MEDS ORDERED: LEVOFLOXACIN (250MG) 250 MG TABLET PO SCH (20:00)
[2017-08-09 08:08] LABS: *SPE ALBUMIN 2.3 g/dL (2.9-4.4); *SPE ALPHA-1-GLOBULIN 0.3 g/dL (0.0-0.4); *SPE ALPHA-2-GLOBULIN 0.7 g/dL (0.4-1.0); *SPE BETA GLOBULIN 0.6 g/dL (0.7-1.3); *SPE GLOBULIN, TOTAL 2.4 g/dL (2.2-3.9); *SPE M-SPIKE Not Observed g/dL (Not Observed); *SPEGAMMA GLOBULIN 0.8 g/dL (0.4-1.8)
[2017-08-12] MEDS ORDERED: POLY17PO4 PO (13:33)
[2017-08-12] MEDS ORDERED: METR500T PO (13:33)
[2017-08-12] MEDS ORDERED: CIPR-262 PO (13:33)
== END 2017-08-05 14:39 | disposition home health service (06) | DRG 871 ==
LOC: ER 13:07 → ICU 16:06 → TELE-TD 18:29 → TELE1 23:45 → MEDSG1 07-31 10:37
PROVIDERS: ADMIT Internal Medicine; ATTEND Internal Medicine
PROC: 05H533Z Insertion of Infusion Device into Right Subclavian Vein, Percutaneous Approach (ICD-10-PCS; principal; 2017-08-03)
PROC: B546ZZA Ultrasonography of Right Subclavian Vein, Guidance (ICD-10-PCS; 2017-08-03)
DX: A41.9 Sepsis, unspecified organism (principal); I26.99 Other pulmonary embolism without acute cor pulmonale; I21.A1 Myocardial infarction type 2; N17.0 Acute kidney failure with tubular necrosis; R53.2 Functional quadriplegia; K51.30 Ulcerative (chronic) rectosigmoiditis without complications; N39.0 Urinary tract infection, site not specified; E44.1 Mild protein-calorie malnutrition; E87.2 Acidosis; B96.20 Unspecified Escherichia coli [E. coli] as the cause of diseases classified elsewhere; E11.40 Type 2 diabetes mellitus with diabetic neuropathy, unspecified; E03.9 Hypothyroidism, unspecified; Z87.11 Personal history of peptic ulcer disease; Z90.710 Acquired absence of both cervix and uterus; Z90.49 Acquired absence of other specified parts of digestive tract; E78.5 Hyperlipidemia, unspecified; F01.50 Vascular dementia, unspecified severity, without behavioral disturbance, psychotic disturbance, mood disturbance, and anxiety; M81.0 Age-related osteoporosis without current pathological fracture; K52.9 Noninfective gastroenteritis and colitis, unspecified; K44.9 Diaphragmatic hernia without obstruction or gangrene; M85.80 Other specified disorders of bone density and structure, unspecified site; Z79.82 Long term (current) use of aspirin; Z79.899 Other long term (current) drug therapy
CPT/HCPCS: 36415; 71045-TC; 78582; 80048-TC; 80076-TC; 81000-TC; 82728-TC; 82746; 82962-TC; 83540-TC; 83605-TC; 83735-TC; 84100-TC; 84155; 84165; 84484-TC; 85025-TC; 85730-TC; 87040-TC; 87081-TC; 87086-TC; 87186-TC; 89055; 92521; A4216; A4606; A9540; A9567; C9113; J0692; J1650; J1956; J2405; J3370; J3475; J3490; J7030; J7050; J7060; Q9967; Z7610

== ENCOUNTER 2017-08-05 19:38 | Emergency (ER) | payer BC ==
[~2017-08-05] VITALS: Ht 165.1 cm; Wt 56.7 kg
[~2017-08-05 19:38] MED LIST: ASPI-1169 PO; ATOR20TA PO; Boost Plus Food-Vanilla PO; CALC-1026 PO; CHOL200026 PO; CITA10TA9 PO; DONE5TAB34 PO; LACT1CAP72 PO; LEVO25TA9 PO; MEGE400O4 PO; RALO60TA PO; RIVA10TA PO; SPIR25TA PO
--- NOTE | 2017-08-05 19:48 | NUR ---
PT TO ER BED 7. PT BIBRA FROM BOARD AND ASSISTED C/O VAGINAL BLEED X 2 DAYS. PT PLACED IN GOWN AND ON EDI COORDINATOR. VSS/RESP EVEN UNLABORED/NAD NOTED/SKIN WARM AND DRY/DENIES N-V-D/AOX4. AWAITING MD PEÑALOZA.
--- NOTE | 2017-08-05 20:00 | NUR ---
16FR IN AND OUT CATH INSERTED USING SCHOOL TRANSPORTATION DIRECTOR, URINE SPECIMEN OBTAINED AND SENT TO THE LAB.
--- NOTE | 2017-08-05 20:05 | NUR ---
LAB AT BEDSIDE TO DRAW.
[2017-08-05 20:09] LABS: BASOPHILS % (AUTO) 0.4 % (0.0-2.0); EOSINOPHILS # (AUTO) 0.1 /CMM (0.0-0.7); EOSINOPHILS % (AUTO) 1.2 % (0.0-6.0); HEMATOCRIT 35 % (33-45); HEMOGLOBIN 11.9 g/dL (11.5-14.8); LYMPHOCYTES # (AUTO) 1.4 /CMM (0.8-4.8); LYMPHOCYTES % (AUTO) 15.1 % (20.0-44.0); MEAN CORPUSCULAR HEMOGLOBIN 28 PG (26.0-33.0); MEAN CORPUSCULAR HGB CONC 35 g/dl (31.0-36.0); MEAN CORPUSCULAR VOLUME 80 fL (82-100); MONOCYTES # (AUTO) 0.6 /CMM (0.1-1.30); MONOCYTES % (AUTO) 6.5 % (2.0-12.0); NEUTROPHILS # (AUTO) 7.2 /CMM (1.8-8.9); NEUTROPHILS % (AUTO) 76.8 % (43.0-81.0); PLATELET COUNT (AUTO) 473 /CMM (150-450); RDW COEFFICIENT OF VARIATION 12.8 (11.5-15.0); RED BLOOD CELL COUNT(AUTO) 4.33 MIL/uL (4.0-5.2); WHITE BLOOD COUNT (AUTO) 9.3 K/uL (4.3-11.0)
--- NOTE | 2017-08-05 20:09 | NUR ---
ULTRASOUND AT BEDSIDE.
[2017-08-05 20:19] LABS: CARBON DIOXIDE 26 mmol/L (21-32); CHLORIDE 105 mmol/L (98-107); CREATININE 0.7 mg/dL (0.6-1.3); GLUCOSE 104 mg/dL (74-106); POTASSIUM 3.3 mmol/L (3.5-5.1); SODIUM SERUM 136 mmol/L (136-145); UREA NITROGEN, BLOOD 7 mg/dL (7-18)
[2017-08-05 20:23] LABS: INR 1.05 (0.87-1.13); PROTHROMBIN TIME 10.9 SECS (9.5-12.7)
[2017-08-05 20:25] LABS: ALANINE AMINOTRANSFERASE 43 U/L (12-78); ALBUMIN 2.4 g/dL (3.4-5.0); ALKALINE PHOSPHATASE 71 U/L (46-116); ASPARTATE AMINOTRANSFERASE 58 U/L (15-37); BILIRUBIN,TOTAL 0.2 mg/dL (0.2-1.0); TOTAL PROTEIN, SERUM 5.7 g/dL (6.4-8.2)
[2017-08-05 20:25] LABS: APPEARANCE,URINE Clear (CLEAR); BILIRUBIN,URINE Negative (NEGATIVE); BLOOD, URINE Small Ery/uL (NEGATIVE); COLOR,URINE Yellow (YELLOW); KETONES,URINE Negative (NEGATIVE); LEUKOCYTE ESTERASE ,URINE Small (NEGATIVE); NITRITE, URINE Negative (NEGATIVE); PROTEIN,URINE Negative (NEGATIVE); UGLUCOSE Negative (NEGATIVE)
--- NOTE | 2017-08-05 20:30 | NUR ---
SETUP FOR PELVIC PER MD ORDERS.
--- NOTE | 2017-08-05 20:40 | NUR ---
ASSISTED MD AT BEDSIDE WITH PELVIC EXAM.
[2017-08-05 20:58] LABS: BACTERIA,URINE Few /HPF (None Seen)
[2017-08-05 20:59] LABS: SQUAMOUS EPITHELIAL CELL,UR Moderate /HPF (None Seen)
[2017-08-05] MEDS ORDERED: CEFTRIAXONE 1GM BAG (ER ONLY) 1 GM/50 ML PIGGYBACK IV ONE (21:00)
[2017-08-05] MEDS ORDERED: CEFTRIAXONE 1 G VIAL ONE (21:15)
--- NOTE | 2017-08-05 21:15 | NUR ---
[facility] #[id number] ETA [id number]
--- NOTE | 2017-08-05 21:19 | NUR ---
new ambulanz eta 2230.
--- NOTE | 2017-08-05 21:39 | NUR ---
DAUGHTER AT BEDSIDE.
[2017-08-05 22:38] VITALS: BP 147/81
--- NOTE | 2017-08-05 22:44 | NUR ---
PT PLACED REC'D ON CPAP MASK. SOB AND RESP DISTRESS NOTED. PT PLACED ON BIPAP WITH SETTINGS CHARTED PER DR SARKAR REQUEST. BIPAP PLUGGED INTO RED OUTLET. ALARMS ARE SET AND AUDIBLE PER POLICY. AMBU BAG BEDSIDE WILL CONTINUE TO MONITOR. Addendum: 08/05/17 at 2245 by AMBAR LOVE RT Amended: Links added. Addendum: 08/06/17 at 0008 by AMBAR LOVE RT charted and noted on incorret patient.
--- NOTE | 2017-08-05 23:41 | NUR ---
AWAITING AMBULANCE TO PICKUP PT FOR DISCHARGE.
--- NOTE | 2017-08-05 23:47 | NUR ---
REPORT GIVEN TO TONY WITH [facility] FOR JEMMA.
--- NOTE | 2017-08-06 00:08 | NUR ---
charted on incorrect patient Addendum: 08/06/17 at 0008 by AMBAR LOVE RT Amended: Links added.
[2017-08-06 00:40] VITALS: BP 119/62
== END 2017-08-06 00:41 | disposition home or self-care (01) ==
LOC: ER 19:41
DX: K64.4 Residual hemorrhoidal skin tags (principal); N30.00 Acute cystitis without hematuria; F03.90 Unspecified dementia, unspecified severity, without behavioral disturbance, psychotic disturbance, mood disturbance, and anxiety; M81.0 Age-related osteoporosis without current pathological fracture; Z79.82 Long term (current) use of aspirin; Z87.19 Personal history of other diseases of the digestive system; Z90.49 Acquired absence of other specified parts of digestive tract; Z90.710 Acquired absence of both cervix and uterus
CPT/HCPCS: 36415; 76856; 80048; 80076; 81001; 85025; 85730; 87086; 96365; 99285; A4606; J0696 ×2; J7030; 81000-TC; Z7610

== ENCOUNTER 2017-08-10 12:17 | Inpatient (IN) | payer BC ==
[~2017-08-10] VITALS: Ht 154.9 cm; Wt 56.7 kg
--- NOTE | 2017-08-10 13:10 | NUR ---
BIB CAREGIVEN AND DTR-- PER CAREGIVER PATIENT HAD BLOOD IN THE STOOL LAST NIGHT AFTER NOT HAVING BOWEL MOVEMENT IN 6 DAYS. PATIENT IS AWAKE HOWEVER CONFUSED,. ABDOMEN NON DISTENDED AND NON TEDERED. PT DENIES PAIN, AFEBRILE. CONNECTED PT TO TELE MONITOR. PENDING MD PEÑALOZA
[2017-08-10] MEDS ORDERED: IV NS 0.9% 500 ML BAG IV ONE (13:30)
[2017-08-10 13:35] LABS: BASOPHILS % (AUTO) 0.2 % (0.0-2.0); EOSINOPHILS # (AUTO) 0.1 /CMM (0.0-0.7); EOSINOPHILS % (AUTO) 0.5 % (0.0-6.0); HEMATOCRIT 34 % (33-45); HEMOGLOBIN 11.7 g/dL (11.5-14.8); LYMPHOCYTES # (AUTO) 1.6 /CMM (0.8-4.8); LYMPHOCYTES % (AUTO) 9.7 % (20.0-44.0); MEAN CORPUSCULAR HEMOGLOBIN 27 PG (26.0-33.0); MEAN CORPUSCULAR HGB CONC 34 g/dl (31.0-36.0); MEAN CORPUSCULAR VOLUME 80 fL (82-100); MONOCYTES % (AUTO) 6.4 % (2.0-12.0); NEUTROPHILS # (AUTO) 13.5 /CMM (1.8-8.9); NEUTROPHILS % (AUTO) 83.2 % (43.0-81.0); PLATELET COUNT (AUTO) 584 /CMM (150-450); RDW COEFFICIENT OF VARIATION 13.5 (11.5-15.0); RED BLOOD CELL COUNT(AUTO) 4.28 MIL/uL (4.0-5.2); WHITE BLOOD COUNT (AUTO) 16.2 K/uL (4.3-11.0)
[2017-08-10 13:45] LABS: CALCIUM, SERUM 8.8 mg/dL (8.5-10.1); CARBON DIOXIDE 24 mmol/L (21-32); CHLORIDE 103 mmol/L (98-107); CREATININE 0.9 mg/dL (0.6-1.3); GLUCOSE 115 mg/dL (74-106); POTASSIUM 4.2 mmol/L (3.5-5.1); SODIUM SERUM 137 mmol/L (136-145); UREA NITROGEN, BLOOD 22 mg/dL (7-18)
[2017-08-10 13:49] LABS: INR 1.02 (0.87-1.13)
[2017-08-10 13:50] LABS: ALANINE AMINOTRANSFERASE 26 U/L (12-78); ALBUMIN 2.5 g/dL (3.4-5.0); ALKALINE PHOSPHATASE 68 U/L (46-116); ASPARTATE AMINOTRANSFERASE 20 U/L (15-37); BILIRUBIN,TOTAL 0.3 mg/dL (0.2-1.0); TOTAL PROTEIN, SERUM 6.5 g/dL (6.4-8.2)
[2017-08-10] MEDS ORDERED: IV NS 0.9% 1,000 ML BAG IV ONE (14:30)
[2017-08-10 14:58] LABS: APPEARANCE,URINE Slightly Cloudy (CLEAR); BILIRUBIN,URINE Negative (NEGATIVE); BLOOD, URINE Negative Ery/uL (NEGATIVE); COLOR,URINE Yellow (YELLOW); KETONES,URINE Negative (NEGATIVE); LEUKOCYTE ESTERASE ,URINE Trace (NEGATIVE); NITRITE, URINE Negative (NEGATIVE); PROTEIN,URINE Negative (NEGATIVE); UGLUCOSE Negative (NEGATIVE); UROBILINOGEN,URINE 0.2 EU/dL (0.2)
[2017-08-10 15:02] LABS: BACTERIA,URINE Rare /HPF (None Seen); RBC,URINE 0-3 /HPF (0-2); SQUAMOUS EPITHELIAL CELL,UR Moderate /HPF (None Seen)
--- NOTE | 2017-08-10 16:13 | NUR ---
PRUDENCE DAUGHTER PHONE NUMBER
[2017-08-10] MEDS ORDERED: PIPERACILLIN /TAZOBACTAM 3.375 G in IV D5W 50 ML IV ONE (16:30)
--- NOTE | 2017-08-10 16:49 | NUR ---
CALLED PHARMACY FOR JAYY
[2017-08-10] MEDS ORDERED: IV 1/2NS 1000 ML 1,000 ML IV PRN (16:53)
--- NOTE | 2017-08-10 16:55 | NUR ---
TELE 311-2
[2017-08-10] MEDS ORDERED: ONDANSETRON HCL/PF 4 MG/2 ML VIAL IVP PRN ×2 (17:00→17:30)
[2017-08-10] MEDS ORDERED: ZOLPIDEM TARTRATE 5 MG TABLET PO PRN ×2 (17:00→17:30)
[2017-08-10] MEDS ORDERED: Z GUARD REMEDY 2 OZ OINT TP PRN ×2 (17:00→17:30)
[2017-08-10] MEDS ORDERED: METRONIDAZOLE 500MG/ NS 100ML 500 MG in PREMIX 1 EA IV SCH (17:00)
[2017-08-10] MEDS ORDERED: MAGNESIUM HYDROXIDE 30 ML UDC PO PRN ×2 (17:00→17:30)
[2017-08-10] MEDS ORDERED: MAG HYDROX/AL HYDROX/SIMETH 30 ML UDC PO PRN ×2 (17:00→17:30)
[2017-08-10] MEDS ORDERED: HYDROCODONE/APAP 5/325MG 1 EACH TABLET PO PRN ×2 (17:00→17:30)
[2017-08-10] MEDS ORDERED: ACETAMINOPHEN 325 MG TABLET PO PRN ×2 (17:00→17:30)
[2017-08-10] MEDS ORDERED: ENOXAPARIN SODIUM 30 MG/0.3 ML DISP.SYRIN SQ SCH ×2 (17:00→17:30)
[2017-08-10] MEDS ORDERED: CEFTRIAXONE 1 G in IV D5W 50 ML IV SCH (17:00)
--- NOTE | 2017-08-10 17:13 | NUR ---
REPORT GIVEN TO JUAN DE GUZMAN FOR JEMMA
--- NOTE | 2017-08-10 18:01 | NUR ---
REPORT GIVEN TO JUAN BOOTH FOR JEMMA MS
--- NOTE | 2017-08-10 19:30 | NUR ---
MS RN INITIAL NOTES PT IS IN BED SLEEPING, AROUSES TO TOUCH, CONFUSED. BREATHING EVENLY AND UNLABORED ON RA, NO SIGNS OF SOB OR DISTRESS. IV ACCESS IS INTACT AND PATENT WITH FLUIDS AND ABX TO BE HUNG. WOUNDS TO BE TAKEN PICTURES OF. BED IS IN LOW AND LOCKED POSITION, CALL LIGHT WITHIN REACH. BED ALARM IS ON. WILL CONTINUE TO MONITOR PT
[2017-08-10 20:00] VITALS: BP 95/53
[2017-08-10] MEDS: METRONIDAZOLE 500MG/ NS 100ML 500 MG in PREMIX 1 EA IV SCH ×2 (20:02→20:08)
[2017-08-10] MEDS: CEFTRIAXONE 1 G in IV D5W 50 ML IV SCH ×2 (20:02→20:08)
--- NOTE | 2017-08-11 00:40 | NUR ---
TEXTED DR BOOTH IN REGARDS TO PTS LOW BP, 500 ML NS BOLUS WAS ORDERED AND CARRIED OUT FOR PT. WILL CONTINUE TO MONITOR
[2017-08-11] MEDS ORDERED: IV NS 0.9% 500 ML IV ONE (01:00)
[2017-08-11] MEDS: METRONIDAZOLE 500MG/ NS 100ML 500 MG in PREMIX 1 EA IV SCH ×3 (04:02→21:38)
--- NOTE | 2017-08-11 05:58 | NUR ---
TEXTED DOMENICO BOOTH FOR CLARIFICATION ON DIET ORDERS, AWAITING RESPONSE
--- NOTE | 2017-08-11 06:39 | NUR ---
CONTACTED [facility] FOR DIET CLARIFICATION, DOCTOR WAS PAGED. AWAITING CALL BACK
--- NOTE | 2017-08-11 07:25 | NUR ---
RN OPEN NOTES RECEIVED REPORT FROM GRAPHIC PRODUCTION ARTIST NURSE. PATIENT IS ALERT AND ORIENTED TO SELF ONLY. CONFUSED. NPO FOR PENDING GI CONSULT. NO SIGNS AND SYMPTOMS OF DISTRESS. DENIED PAIN. BREATHING IN BILATERALLY EQUAL AND UNLABORED. BED IN LOW POSITION, LOCKED AND TWO SIDE RAILS ARE UP. CALL LIGHT WITHIN REACH FOR SAFETY. WILL CONTINUE TO ASSESS AND MONITOR PATIENT
[2017-08-11] MEDS: PANTOPRAZOLE 40 MG TABLET.DR PO SCH (07:30)
[2017-08-11] MEDS: LEVOTHYROXINE SODIUM 25 MCG TABLET PO SCH (07:30)
[2017-08-11] MEDS ORDERED: PANTOPRAZOLE 40 MG TABLET.DR PO SCH (07:30)
[2017-08-11] MEDS: DONEPEZIL 5 MG TABLET PO SCH (07:47)
[2017-08-11] MEDS: BOOST PLUS FOOD-VANILLA 237 ML BOX PO SCH ×2 (07:47→17:00)
[2017-08-11] MEDS: RALOXIFENE 60 MG TABLET PO SCH (07:48)
[2017-08-11] MEDS: LACTOBACILLUS RHAMNOSUS GG 1 EACH CAP.SPRINK PO SCH ×2 (07:48→17:31)
[2017-08-11] MEDS: ASPIRIN 81 MG TAB.CHEW PO SCH (07:48)
[2017-08-11] MEDS: CALCIUM CARBONATE (1250) 500 MG TABLET PO SCH ×2 (07:48→17:31)
[2017-08-11] MEDS: MEGESTROL ACETATE SUSP 400 MG/10 ML UDC PO SCH ×2 (07:48→17:00)
[2017-08-11 08:00] VITALS: BP 90/50
[2017-08-11] MEDS: IV 1/2NS 1000 ML 1,000 ML IV PRN (12:42)
[2017-08-11 16:00] VITALS: BP 107/61
[2017-08-11] MEDS ORDERED: POLYETHYLENE GLYCOL 3350 17 GM POWD.PACK PO PRN (17:00)
[2017-08-11] MEDS: RIVAROXABAN 10 MG TABLET PO SCH (17:32)
--- NOTE | 2017-08-11 18:34 | NUR ---
Met with patient and daughter Altagracia at bedside. Patient lives at home with 24hrs caregiver. She requires max to total assist with adl's. She is confined to chair and bed most of the time. Has adequate DME: hospital bed (borrowed),walker, wheelchair and hoyerlift. Has good family support. Per daughter, patient currently has a hosp bed that was borrowed from a board and [facility]. Daughter is requesting hosp bed if insurance covered and homehealth. Daughter will make arrangement for transportation once patient discharge. Addendum: 08/11/17 at 1834 by TREY MORGAN RN Amended: Links added.
--- NOTE | 2017-08-11 18:53 | NUR ---
RN CLOSING NOTES PATIENT IS IN BED, . NO SIGNS AND SYMPTOMS OF DISTRESS. PER PATIENT;S DAUGHTER: KEEP HOB AT 30 DEGREE AT ALL TIME. BED ON LOW POSITION, LOCKED AND TWO SIDE RAILS ARE UP. CALL LIGHT WITHIN CALL FOR SAFETY. ALL NURSING CARE ANTICIPATED AND ATTENDED FOR. PATIENT KEPT CLEAN AND DRY. WILL ENDORSE TO HOLISTIC SPECIALIST RN
--- NOTE | 2017-08-11 19:23 | NUR ---
MS RN NOTES A/O X 1, PERIODS OF CONFUSION, AWAKE IN BED, PT IN STABLE CONDITION, NO S/S OF DISTRESS. SAFETY MEASURES ARE IN PLACE, CALL LIGHT IS IN REACH. WILL CONTINUE TO MONITOR.
[2017-08-11 20:00] VITALS: BP 112/65
[2017-08-11] MEDS: CEFTRIAXONE 1 G in IV D5W 50 ML IV SCH (20:31)
[2017-08-11] MEDS: SIMVASTATIN 40 MG TABLET PO SCH (21:38)
[2017-08-12] MEDS: IV 1/2NS 1000 ML 1,000 ML IV PRN (01:33)
[2017-08-12] MEDS: METRONIDAZOLE 500MG/ NS 100ML 500 MG in PREMIX 1 EA IV SCH ×3 (04:58→21:57)
--- NOTE | 2017-08-12 06:22 | NUR ---
MS RN CLOSING NOTES PT COMFORTABLY ASLEEP AND EASILY AWAKEN, TOLERATING ROOM AIR 98% IN STABLE CONDITION. RESPIRATION EVEN AND UNLABORED. KEPT CLEAN AND DRY AND COMFORTABLE, ALL NURSING CARE RENDERED. NEEDS ATTENDED AND ANTICIPATED, FREQUENT VISUAL CHECK DONE FOR SAFETY EVERY 2 HOURS. REPOSITIONED EVERY 2 HOURS FOR SKIN MGT. GOOD SKIN CARE PROVIDED. ON LOW BED AT ALL TIMES TO ENSURE SAFETY. SAFE HAZARD FREE ENVIRONMENT PROVIDED. NO COMPLAINS OF PAIN. CALL LIGHT WITHIN EASY TO REACH. WILL ENDORSE NEXT SHIFT CONTINUITY OF CARE.
--- NOTE | 2017-08-12 07:58 | NUR ---
MS RN OPENING NOTE RECEIVED BEDSIDE SBAR REPORT ON THE PATIENT. PATIENT IS A/O X1, FORGETFUL AND CONFUSED. DENIES PAIN/DISCOMFORT AT THIS TIME. PATIENT IS ON ROOM AIR. CHEST RISING EQUALLY BILATERALLY. PATIENT IS IN BED. BED IS LOCKED IN LOWEST POSITION. SIDE RAILS ARE UP X3. BED ALARM IS ON. CALL LIGHT WITHIN REACH. PATIENT EDUCATED TO USE THE CALL LIGHT TO CALL FOR ASSISTANCE. ALL NEEDS ARE MET. WILL CONTINUE TO ASSESS/MONITOR.
[2017-08-12 08:00] VITALS: BP_SYST 112; BP_SYST 113; BP_DIAS 62; BP_DIAS 65
[2017-08-12 08:16] LABS: CALCIUM, SERUM 7.9 mg/dL (8.5-10.1); CARBON DIOXIDE 22 mmol/L (21-32); CHLORIDE 107 mmol/L (98-107); CREATININE 0.7 mg/dL (0.6-1.3); GLUCOSE 98 mg/dL (74-106); MAGNESIUM 1.8 mg/dL (1.8-2.4); PHOSPHORUS 2.8 mg/dL (2.5-4.9); POTASSIUM 3.8 mmol/L (3.5-5.1); SODIUM SERUM 138 mmol/L (136-145); UREA NITROGEN, BLOOD 9 mg/dL (7-18)
[2017-08-12] MEDS: MEGESTROL ACETATE SUSP 400 MG/10 ML UDC PO SCH ×2 (10:02→17:49)
[2017-08-12] MEDS: CALCIUM CARBONATE (1250) 500 MG TABLET PO SCH ×2 (10:02→17:49)
[2017-08-12] MEDS: LEVOTHYROXINE SODIUM 25 MCG TABLET PO SCH (10:02)
[2017-08-12] MEDS: RALOXIFENE 60 MG TABLET PO SCH (10:02)
[2017-08-12] MEDS: LACTOBACILLUS RHAMNOSUS GG 1 EACH CAP.SPRINK PO SCH ×2 (10:02→17:49)
[2017-08-12] MEDS: BOOST PLUS FOOD-VANILLA 237 ML BOX PO SCH ×2 (10:02→17:49)
[2017-08-12] MEDS: DONEPEZIL 5 MG TABLET PO SCH (10:03)
[2017-08-12] MEDS: PANTOPRAZOLE 40 MG TABLET.DR PO SCH (10:03)
[2017-08-12] MEDS: ASPIRIN 81 MG TAB.CHEW PO SCH (10:03)
[2017-08-12 11:17] LABS: BASOPHILS # (AUTO) 0.1 /CMM (0.0-0.2); BASOPHILS % (AUTO) 1.3 % (0.0-2.0); EOSINOPHILS # (AUTO) 0.1 /CMM (0.0-0.7); EOSINOPHILS % (AUTO) 0.7 % (0.0-6.0); HEMATOCRIT 30 % (33-45); LYMPHOCYTES # (AUTO) 1.5 /CMM (0.8-4.8); MEAN CORPUSCULAR HEMOGLOBIN 27 PG (26.0-33.0); MEAN CORPUSCULAR HGB CONC 33 g/dl (31.0-36.0); MEAN CORPUSCULAR VOLUME 81 fL (82-100); MONOCYTES # (AUTO) 0.7 /CMM (0.1-1.30); MONOCYTES % (AUTO) 8.8 % (2.0-12.0); NEUTROPHILS # (AUTO) 5.9 /CMM (1.8-8.9); NEUTROPHILS % (AUTO) 71.2 % (43.0-81.0); PLATELET COUNT (AUTO) 444 /CMM (150-450); RDW COEFFICIENT OF VARIATION 14.6 (11.5-15.0); RED BLOOD CELL COUNT(AUTO) 3.68 MIL/uL (4.0-5.2); WHITE BLOOD COUNT (AUTO) 8.3 K/uL (4.3-11.0)
[2017-08-12] MEDS ORDERED: POLY17PO4 PO (13:33)
[2017-08-12] MEDS ORDERED: CIPR-262 PO (13:33)
[2017-08-12] MEDS ORDERED: METR500T PO (13:33)
--- NOTE | 2017-08-12 15:05 | NUR ---
WOUND CARE CONSULT: PT PRESENTS WITH VERY RED RASH TO BUTTOCKS, GROIN, PERINEUM AND INNER THIGHS PRESENT ON ADMISSION. RECOMMENDATIONS MADE FOR SKIN CARE AND PROTECTION. DISCUSSED WITH NURSING STAFF. PT IS INCONTINENT. CURRENT LOUIE SCORE IS 11. WILL SEE PRN. MEZA IN AGREEMENT WITH PLAN OF CARE. [facility] BED TO BE PLACED. Addendum: 08/12/17 at 1506 by FARZAD LERMA WNDNU Amended: Links added.
[2017-08-12 16:00] VITALS: BP_SYST 103; BP_SYST 113; BP_DIAS 56; BP_DIAS 62
[2017-08-12] MEDS: RIVAROXABAN 10 MG TABLET PO SCH (18:02)
[2017-08-12] MEDS: CLOTRIMAZOLE/BETAMETASONE DIPROPIONATE 15 GM TUBE TP SCH (18:03)
--- NOTE | 2017-08-12 19:08 | NUR ---
MS RN CLOSING NOTE DISCHARGE INSTRUCTIONS DISCUSSED WITH THE PATIENT AND THE PATIENT'S DAUGHTER OVER THE PHONE. ALL NEEDS ARE MET. PATIENT DENIES PAIN/DISCOMFORT AT THIS TIME. SPO2 98% ON RA. CHEST IS RISING EQUALLY BILATERALLY. PATIENT IS A/O X2, CONFUSED FORGETFUL. ALL NEEDS ARE MET AT THIS TIME. ALL DUE MEDICATIONS ADMINISTERED. PERIANAL AREA FUNGAL HECTOR TREATMENT PERFORMED PRESCRIBED. PATIENT REPOSITIONED FOR COMFORT AND FUNCTIONAL ALIGNMENT EVERY 2 HOURS AND NEEDED. PATIENT'S SKIN KEPT DRY AND CLEAN. FREQUENT ROUNDING PERFORMED. PATIENT IS IN STABLE CONDITION, WITH VS WNL IN BED. BED IS LOCKED IN LOWEST POSITION, SIDE RAILS UP X3, BED ALARM IS ON. CALL LIGHT WITHIN REACH. EDUCATED TO USE THE CALL LIGHT TO CALL FOR ASSISTANCE. EXITCARE COMPLETED. DISCHARGE POCKET COMPLETED. SKIN CONDITION DOCUMENTED/PICTURES OBTAINED AND PLACED IN THER CHART. ALL BELONGINGS ACCOUNTED FOR. CALL DAUGHTER PRUDENCE MULTIPLE TIMES AND LEFT A VOICEMAIL. WAITING FOR PRUDENCE TO RETURN THE CALL BACK TO DISCUSS A TIME OF HER PICKING UP THE PATIENT. WILL ENDORSE TO THE CHEMICAL LABORATORY CHIEF NURSE FOR JEMMA.
--- NOTE | 2017-08-12 19:30 | NUR ---
MS/RN OPENING NOTES PT ASLEEP, AROUSABLE TO NAME AND LIGHT TOUCH. ON ROOM AIR, BREATHING EVEN AND UNLABORED. NO S/S OF SOB OR PAIN. IN NO DISTRESS. IV TO LAC PATENT AND INTACT RUNNING IVF ORDERED. PT ORDERED FOR DISCHARGE TONIGHT. DAUGHTER PRUDENCE TO HOUSING CASE MANAGER PT. LEFT VOICEMAIL AND AWAITING CALL BACK. BED IN LOW/LOCKED POSITION WITH CALL LIGHT IN REACH. SIDE RAILS UPX2. WILL CONTINUE TO MONITOR
[2017-08-12 20:00] VITALS: BP 101/61
[2017-08-12] MEDS: CEFTRIAXONE 1 G in IV D5W 50 ML IV SCH (20:08)
--- NOTE | 2017-08-12 21:00 | NUR ---
MS/RN NOTES CALLED PRUDENCE TO FOLLOW UP REGARDING PT'S TIME STUDY ANALYST TIME. AWAITING CALL BACK
[2017-08-12] MEDS: SIMVASTATIN 40 MG TABLET PO SCH (21:57)
--- NOTE | 2017-08-12 22:07 | NUR ---
MS/RN NOTES CALLED AND LEFT PRUDENCE ANOTHER MESSAGE TO CONFIRM SUPERVISOR ALUMINUM BOAT ASSEMBLY TIME. STILL AWAITING CALL BACK. AOC AIRSPACE CONTROL OFFICER AWARE THAT LILLIAM CALLED X3 SINCE START OF SHIFT.
--- NOTE | 2017-08-13 00:10 | NUR ---
MS/RN NOTES NOTIFIED CORINNA GONZALES REGARDING PT'S DAUGHTER NOT RETURNING PHONE CALL TO CONFIRM LICENSED CERTIFIED ORTHOTIST TIME FOR DISCHARGE. PT WILL HAVE TO STAY OVERNIGHT.
[2017-08-13] MEDS: IV 1/2NS 1000 ML 1,000 ML IV PRN (02:21)
[2017-08-13] MEDS: METRONIDAZOLE 500MG/ NS 100ML 500 MG in PREMIX 1 EA IV SCH ×2 (05:14→13:59)
--- NOTE | 2017-08-13 06:49 | NUR ---
MS/RN CLOSING NOTES PT AWAKE, RESTING COMFORTABLY IN BED. REMAINS ON ROOM AIR, BREATHING EVEN AND UNLABORED. DENIES PAIN. NO SOB OR S/S OF DISTRESS NOTED. IV TO LAC PATENT AND INTACT RUNNING IVF ORDERED. KEPT PT CLEAN AND DRY DURING SHIFT. WOUND CARE PROVIDED ORDERED. TURNED/REPOSITIONED Q2H AND HEELS OFFLOADED. NO SIGNIFICANT CHANGES OVERNIGHT. PT FOR DISCHARGE TODAY, DAUGHTER TO PICK PT UP. BED REMAINS IN LOW/LOCKED POSITION WITH CALL LIGHT IN REACH. SIDE RAILS UPX3 AND BED ALARM ON FOR SAFETY. WILL ENDORSE TO DAY SHIFT RN JEMMA.
--- NOTE | 2017-08-13 07:51 | NUR ---
MS RN OPENING NOTE RECEIVED BEDSIDE SBAR REPORT ON THE PATIENT. PATIENT IS A/O X1, CONFUSED, FORGETFUL, DENIES PAIN/DISCOMFORT AT THIS TIME. CHEST IS RISING EQUALLY BILATERALLY. SPO2 98 % ON RA. DISCHARGE ORDER RECEIVED ON THE PATIENT ON 08/12/17. DISCHARGE EDUCATION PROVIDED ON 08/12/17. NIGHTSHIFT RN WAS UNABLE TO GET HOLD OF THE DAUGHTER TO ARRANGE A GEOMETRY TUTOR TIME FOR THE PATIENT. WILL ATTEMPT TO CALL THE DAUGHTER AGAIN TO ARRANGE FOR A GEOMETRY TUTOR TIME. PATIENT IS IN BED. BED IS LOCKED IN LOWEST POSITION, SIDE RAILS UP X3, BED ALARM IS ON. CALL LIGHT WITHIN REACH. EDUCATED TO USE THE CALL LIGHT TO CALL FOR ASSISTANCE. ALL NEEDS ARE MET. WILL CONTINUE TO ASSESS/MONITOR THROUGHOUT THE SHIFT.
[2017-08-13 08:00] VITALS: BP 107/63
[2017-08-13] MEDS: BOOST PLUS FOOD-VANILLA 237 ML BOX PO SCH (08:33)
[2017-08-13] MEDS: MEGESTROL ACETATE SUSP 400 MG/10 ML UDC PO SCH (08:33)
[2017-08-13] MEDS: LACTOBACILLUS RHAMNOSUS GG 1 EACH CAP.SPRINK PO SCH (08:33)
[2017-08-13] MEDS: PANTOPRAZOLE 40 MG TABLET.DR PO SCH (08:33)
[2017-08-13] MEDS: RALOXIFENE 60 MG TABLET PO SCH (08:33)
[2017-08-13] MEDS: LEVOTHYROXINE SODIUM 25 MCG TABLET PO SCH (08:33)
[2017-08-13] MEDS: ASPIRIN 81 MG TAB.CHEW PO SCH (08:33)
[2017-08-13] MEDS: CALCIUM CARBONATE (1250) 500 MG TABLET PO SCH (08:33)
[2017-08-13] MEDS: DONEPEZIL 5 MG TABLET PO SCH (08:33)
[2017-08-13] MEDS: CLOTRIMAZOLE/BETAMETASONE DIPROPIONATE 15 GM TUBE TP SCH (08:34)
[2017-08-13] MEDS ORDERED: LACTULOSE 10 G/15 ML UDC (PYXIS) PO PRN (12:00)
--- NOTE | 2017-08-13 12:51 | NUR ---
TALKED TO JENNIFER THE DAUGHTER. THE DAUGHTER STATED SHE HAS TO CALL THE CAREGIVER TO FIND OUT WHEN CAN THE CAREGIVER METAL FURNITURE POLISHER THE PATIENT. ASKED TO CALL BACK IN AN HOUR FOR SET METAL FURNITURE POLISHER TIME. WILL CALL BACK IN AN HOUR DISCUSSED.
--- NOTE | 2017-08-13 14:41 | NUR ---
PER DAUGHTER THE TRANSPORTATION WILL BE HERE AT 4PM.
--- NOTE | 2017-08-13 16:57 | NUR ---
PATIENT'S DAUGHTER PRUDENCE CAME TO NETWORKING SPECIALIST THE PATIENT WITH A MEDICAL TRANSPORTATION. PATIENT' IV CATHETER REMOVED WITH THE TIP INTACT. OCLUSIVE DRESSING APPLIED. PATIENT TOLERATED THE PROCEDURE WELL. DISCHARGE PAPERWORK GIVEN TO PRUDENCE, THE DAUGHTER. ALL BELONGINGS ARE ACCOUNTED FOR. PATIENT LEFT THE UNIT ACCOMPANIED BY THE DAUGHTER, RN AND THE MEDICAL BISQUE KILN DRAWER VIA WHEELCHAIR. PATIENT LEFT THE HOSPITAL VIA TRANSPORTATION CAR IN A STABLR CONDITION.
[2017-08-13] MEDS ORDERED: POLYETHYLENE GLYCOL 3350 17 GM POWD.PACK PO SCH (22:00)
== END 2017-08-13 16:56 | disposition home or self-care (01) | DRG 682 ==
LOC: ER 12:20 → TELE 17:49 → MED 18:04
PROVIDERS: ADMIT Internal Medicine; ATTEND Internal Medicine
DX: N17.0 Acute kidney failure with tubular necrosis (principal); I26.99 Other pulmonary embolism without acute cor pulmonale; E44.0 Moderate protein-calorie malnutrition; E46 Unspecified protein-calorie malnutrition; K86.2 Cyst of pancreas; A09 Infectious gastroenteritis and colitis, unspecified; E11.9 Type 2 diabetes mellitus without complications; F03.90 Unspecified dementia, unspecified severity, without behavioral disturbance, psychotic disturbance, mood disturbance, and anxiety; Z90.49 Acquired absence of other specified parts of digestive tract; Z90.710 Acquired absence of both cervix and uterus; Z87.11 Personal history of peptic ulcer disease; Z86.711 Personal history of pulmonary embolism; Z79.899 Other long term (current) drug therapy; Z79.82 Long term (current) use of aspirin; Z79.01 Long term (current) use of anticoagulants; K59.00 Constipation, unspecified; M81.0 Age-related osteoporosis without current pathological fracture; E03.9 Hypothyroidism, unspecified; E78.5 Hyperlipidemia, unspecified; K64.9 Unspecified hemorrhoids
CPT/HCPCS: 36415; 80048-TC; 80076-TC; 81000-TC; 82272-TC; 82962-TC; 83735-TC; 84100-TC; 85025-TC; 85730-TC; 86850-TC; 87045-TC; 87081-TC; 89055; A4216; A4606; J0696; J1650; J2543; J3490; J7040; J7060; Z7610

== ENCOUNTER 2017-08-18 07:49 | Inpatient (IN) | payer BC ==
[~2017-08-18] VITALS: Ht 167.6 cm; Wt 55.3 kg
[~2017-08-18 07:49] MED LIST changes: +CIPR-262 PO; -CITA10TA9 PO; +METR500T PO; +POLY17PO4 PO
[2017-08-18] MEDS ORDERED: IV NS 0.9% 1,000 ML BAG IV ONE ×2 (08:00→10:00)
--- NOTE | 2017-08-18 08:00 | NUR ---
Ishaan.PT TO ED ROOM 02. BIB [facility] FOR MORE ALTERED THAN USUAL AND DARK TARRY STOOL PER STAFF. A/A/O. REDNESS NOTED TO BILATERAL BUTTOCKS. CHANGED TO GOWN. CONNECTED TO MONITOR. SIDE RAISL UP. HOB ELEVATED. DR COLE AT [facility] FOR EVAL.
--- NOTE | 2017-08-18 08:01 | NUR ---
LINE STARTES ON L FA G 18, BLOOD AND CULTURES DRAWN FROM LINE AND SENT TO LAB
[2017-08-18 08:20] LABS: BASOPHILS % (AUTO) 0.4 % (0.0-2.0); EOSINOPHILS % (AUTO) 0.5 % (0.0-6.0); HEMATOCRIT 32 % (33-45); HEMOGLOBIN 10.7 g/dL (11.5-14.8); LYMPHOCYTES % (AUTO) 22.6 % (20.0-44.0); MEAN CORPUSCULAR HEMOGLOBIN 27 PG (26.0-33.0); MEAN CORPUSCULAR HGB CONC 33 g/dl (31.0-36.0); MEAN CORPUSCULAR VOLUME 81 fL (82-100); MONOCYTES # (AUTO) 0.7 /CMM (0.1-1.30); MONOCYTES % (AUTO) 7.6 % (2.0-12.0); NEUTROPHILS # (AUTO) 6.1 /CMM (1.8-8.9); NEUTROPHILS % (AUTO) 68.9 % (43.0-81.0); PLATELET COUNT (AUTO) 810 /CMM (150-450); RDW COEFFICIENT OF VARIATION 14.5 (11.5-15.0); RED BLOOD CELL COUNT(AUTO) 3.93 MIL/uL (4.0-5.2); WHITE BLOOD COUNT (AUTO) 8.8 K/uL (4.3-11.0)
--- NOTE | 2017-08-18 08:20 | NUR ---
URINE SAMPLE COLELCTED VIA STERILE IN/OUT GUSTAFSON CATH. PATIENT TOLERATED PROCEDURE WELL.
--- NOTE | 2017-08-18 08:24 | NUR ---
Purvi Meade 20 IV POA.
[2017-08-18 08:30] LABS: CALCIUM, SERUM 8.2 mg/dL (8.5-10.1); CARBON DIOXIDE 25 mmol/L (21-32); CHLORIDE 102 mmol/L (98-107); GLUCOSE 98 mg/dL (74-106); POTASSIUM 4.1 mmol/L (3.5-5.1); SODIUM SERUM 136 mmol/L (136-145); UREA NITROGEN, BLOOD 18 mg/dL (7-18)
[2017-08-18 08:35] LABS: ALANINE AMINOTRANSFERASE 26 U/L (12-78); ALBUMIN 2.5 g/dL (3.4-5.0); ALKALINE PHOSPHATASE 56 U/L (46-116); ASPARTATE AMINOTRANSFERASE 30 U/L (15-37); BILIRUBIN,DIRECT 0.1 mg/dL (0.0-0.2); BILIRUBIN,TOTAL 0.3 mg/dL (0.2-1.0); TOTAL PROTEIN, SERUM 6.3 g/dL (6.4-8.2)
[2017-08-18 08:37] LABS: INR 1.13 (0.87-1.13)
[2017-08-18 08:38] LABS: TROPONIN I 0.019 ng/mL (0.00-0.056)
[2017-08-18] MEDS ORDERED: CEFTRIAXONE 1GM BAG (ER ONLY) 50 ML IV ONE (08:59)
[2017-08-18] MEDS ORDERED: METRONIDAZOLE 500MG/ NS 100ML 100 ML IV ONE (08:59)
[2017-08-18] MEDS ORDERED: FLAGYL/NS RTU 500 MG/100 ML PIGGYBACK IV ONE (09:00)
[2017-08-18] MEDS ORDERED: CEFTRIAXONE 1GM BAG (ER ONLY) 1 GM/50 ML PIGGYBACK IV ONE (09:00)
[2017-08-18 09:19] LABS: APPEARANCE,URINE CLOUDY (CLEAR); BILIRUBIN,URINE NEGATIVE (NEGATIVE); BLOOD, URINE TRACE Ery/uL (NEGATIVE); COLOR,URINE YELLOW (YELLOW); KETONES,URINE NEGATIVE (NEGATIVE); LEUKOCYTE ESTERASE ,URINE 3+ (NEGATIVE); NITRITE, URINE POSITIVE (NEGATIVE); PROTEIN,URINE TRACE mg/dl (NEGATIVE); UGLUCOSE NEGATIVE (NEGATIVE); UROBILINOGEN,URINE 0.2 EU/dL (0.2)
[2017-08-18 09:24] LABS: BACTERIA,URINE 4+ /HPF (None Seen); WBC,URINE 81-100 /HPF (0-3)
[2017-08-18] MEDS ORDERED: LEVOFLOXACIN 750 MG /D5W 150ML PIGGYBACK IV ONE (09:30)
[2017-08-18] MEDS ORDERED: LEVOFLOXACIN 750 MG /D5W 150ML 150 ML IV ONE (09:34)
--- NOTE | 2017-08-18 09:42 | NUR ---
PAGED ANDREY BRODY MUTUEL TELLER FOR ADMISSION
--- NOTE | 2017-08-18 10:14 | NUR ---
SECOND CALL TO [facility] [phone] ANDREY LOVE COGNOS DEVELOPER FOR ER.
[2017-08-18] MEDS ORDERED: PANTOPRAZOLE 40 MG VIAL IV SCH (10:30)
[2017-08-18] MEDS ORDERED: DILTIAZEM HCL 50 MG IV IV ONE (10:30)
[2017-08-18] MEDS ORDERED: DILTIAZEM HCL 50 MG IV ONE (10:35)
[2017-08-18] MEDS ORDERED: PANTOPRAZOLE 40 MG VIAL ONE (10:35)
[2017-08-18 11:00] VITALS: BP 97/59
[2017-08-18] MEDS ORDERED: MAGNESIUM HYDROXIDE 30 ML UDC PO PRN (11:00)
[2017-08-18] MEDS ORDERED: Z GUARD REMEDY 2 OZ OINT TP PRN (11:00)
[2017-08-18] MEDS ORDERED: ACETAMINOPHEN 325 MG TABLET PO PRN (11:00)
[2017-08-18] MEDS ORDERED: POLYETHYLENE GLYCOL 3350 17 GM POWD.PACK PO PRN (11:00)
[2017-08-18] MEDS ORDERED: MAG HYDROX/AL HYDROX/SIMETH 30 ML UDC PO PRN (11:00)
[2017-08-18] MEDS ORDERED: HYDROCODONE/APAP 5/325MG 1 EACH TABLET PO PRN (11:00)
--- NOTE | 2017-08-18 11:04 | NUR ---
REPORT GIVEN TO TELE NURSE [phone]
[2017-08-18] MEDS ORDERED: MORPHINE SULFATE INJ 4 MG/ML DISP.SYRIN IV PRN (11:30)
--- NOTE | 2017-08-18 11:50 | NUR ---
RESPIRATORY THERAPY TECHNICIAN ADMITTING NOTES PT ADMITTED TO UNIT VIA GURNEY AT 11OO. A/O X2, VERBALLY RESPONSIVE BUT CONFUSED. TRANSFERRED TO BED GENTLY AND ORIENTED TO ROOM/UNIT. V/S TAKEN AND RECORDED. PT WITH DIAGNOSIS OF GI BLEED, AND UTI. SKIN ASSESSMENT DONE, PHOTOS TAKEN AND FILED ON CHART. PT PLACED ON TELEMONITORING WITH READING OF SINUS TACH AND HR OF 104. SHE HAD TWO IV LINES, LEFT FA G#18 AND RIGHT HAND G#20, BOTH INTACT, PATENT AND FLUSHES WELL. IVF WILL BE STARTED. SAFETY MEASURES INITIATED. PUT BED IN LOW/LOCKED POSITION WITH SIDE-RAILS UP X3. CALL LIGHT PLACED WITHIN REACH. WILL CONTINUE TO MONITOR.
[2017-08-18] MEDS: IV NS 0.9% 1,000 ML IV PRN (12:08)
[2017-08-18] MEDS: CHOLECALCIFEROL 1,000 UNIT TABLET (VIT D3) PO SCH (12:41)
[2017-08-18 12:48] LABS: TROPONIN I 0.017 ng/mL (0.00-0.056)
[2017-08-18] MEDS ORDERED: MAGNESIUM CITRATE 296 ML BOTTLE PO ONE (13:00)
[2017-08-18] MEDS ORDERED: PEG 3350/NA SULF,BICARB,CL/KCL 4,000 ML BOTTLE PO ONE (14:00)
[2017-08-18 16:00] VITALS: BP 101/66
[2017-08-18] MEDS: BOOST PLUS FOOD-VANILLA 237 ML BOX PO SCH (17:00)
--- NOTE | 2017-08-18 17:15 | NUR ---
RN NOTES PT ON CLEAR DIET AT THIS TIME, BOOST VANILLA LACTOSE FREE NOT GIVEN. WILL CONTINUE TO MONITOR
[2017-08-18] MEDS: CALCIUM CARBONATE (1250) 500 MG TABLET PO SCH (17:20)
[2017-08-18] MEDS: MEGESTROL ACETATE SUSP 400 MG/10 ML UDC PO SCH (17:20)
[2017-08-18] MEDS: PANTOPRAZOLE 40 MG VIAL IV SCH (17:20)
[2017-08-18] MEDS: LACTOBACILLUS RHAMNOSUS GG 1 EACH CAP.SPRINK PO SCH (17:20)
[2017-08-18 17:24] LABS: HEMOGLOBIN 9.2 g/dL (11.5-14.8)
--- NOTE | 2017-08-18 18:02 | NUR ---
RN NOTES PT FOR COLONOSCOPY AND EGD TOMORROW UNDER DR CRUZ. PROCEDURES EXPLAINED TO PT'S DAUGHTER PRUDENCE AUSTIN AND VERBALIZED UNDERSTANDING. CONSENT WAS SIGNED AND FILED ON CHART. PT ON JASVIR IN PROGRESS. WILL CONTINUE TO MONITOR.
--- NOTE | 2017-08-18 18:39 | NUR ---
PULLMAN CONDUCTOR CLOSING NOTES PT AWAKE AND RESTING AT MODERATE HIGH BACKREST IN BED. A/O X2, SAME VERBALLY RESPONSIVE BUT CONFUSED. ON TELE-MONITORING WITH CURRENT READING OF SINUS TACH AND HR OF 98. ON O2 VIA N/C @ 2LPM, BREATHING EVEN WITH NO SOB NOTED. PT'S IV LINES ON LEFT FA G#18 AND RIGHT HAND G#20, BOTH INTACT AND PATENT, IVF OF NS @50 ML/HR IN PROGRESS. ALL SAFETY MEASURES MAINTAINED. KEPT BED IN LOW/LOCKED POSITION WITH SIDE-RAILS UP X3. CALL LIGHT WITHIN REACH. ALL NEEDS AND CARE PROVIDED WELL. PT FOR COLONOSCOPY AND EGD TOMORROW BY DR WIGGINS. JASVIR IN PROGRESS. NPO POST MIDNIGHT WILL BE ENFORCED. WILL ENDORSED TO DENTIST NURSE FOR JEMMA..
--- NOTE | 2017-08-18 19:15 | NUR ---
RN NOTES RECEIVED PT AWAKE, HOB ELEVATED, ON 2LPM O2 VIA NC AND TOLERATED WELL. PT ALERT AND ORIENTED X1 WITH CONFUSION NOTED. DENIES ANY PAIN AND DISCOMFORT AT THIS TIME. TELEMONITOR READS SINUS TACH WITH HEART RATE AT 107. PT ENCOURAGE TO DRINK GOLYTELY FOR TOMORROW'S PROCEDURE, EGD AND COLONOSCOPY. PT IS ONLY TAKING SIPS OF GOLYTELY AND VERBALIZING SHE CAN'T TAKE MORE OF IT. WILL CONTINUE TO OFFER GOLYTELY. SAFETY MEASURES AND FALL PRECAUTION OBSERVED. WILL CONTINUE TO MONITOR PT.
[2017-08-18 20:00] VITALS: BP 90/54
[2017-08-18 22:00] VITALS: BP 96/57
--- NOTE | 2017-08-18 22:30 | NUR ---
RN NOTES SPOKE TO DR WIGGINS, MADE HIM AWARE THAT PT IS REFUSING TO TAKE MORE OF THE GOLYTELY. PT TOOK ONLY 8 OZ OF GOLYTELY AND CANNOT TOLERATE ANYMORE. PT VERBALIZED SHE FEELS FULL, NO BM NOTED. PER DR WIGGINS, ITS OK. CANCEL COLONOSCOPY AND WILL JUST DO EGD TOMORROW AND MAY GIVE FLEET ENEMA.
[2017-08-19] VITALS: BP 106/67
[2017-08-19] MEDS: NA PHOS,M-B/NA PHOS,DI-BA 1 EA ENEMA RC PRN ×2 (04:51→11:28)
[2017-08-19] MEDS: IV NS 0.9% 1,000 ML IV PRN (05:59)
[2017-08-19 06:00] VITALS: BP 105/56
[2017-08-19 06:40] LABS: BASOPHILS # (AUTO) 0.1 /CMM (0.0-0.2); BASOPHILS % (AUTO) 0.8 % (0.0-2.0); EOSINOPHILS # (AUTO) 0.1 /CMM (0.0-0.7); EOSINOPHILS % (AUTO) 0.7 % (0.0-6.0); HEMATOCRIT 27 % (33-45); HEMOGLOBIN 9.2 g/dL (11.5-14.8); LYMPHOCYTES # (AUTO) 1.8 /CMM (0.8-4.8); LYMPHOCYTES % (AUTO) 23.9 % (20.0-44.0); MEAN CORPUSCULAR HEMOGLOBIN 27 PG (26.0-33.0); MEAN CORPUSCULAR HGB CONC 34 g/dl (31.0-36.0); MEAN CORPUSCULAR VOLUME 80 fL (82-100); MONOCYTES # (AUTO) 0.6 /CMM (0.1-1.30); MONOCYTES % (AUTO) 8.3 % (2.0-12.0); NEUTROPHILS % (AUTO) 66.3 % (43.0-81.0); PLATELET COUNT (AUTO) 683 /CMM (150-450); RDW COEFFICIENT OF VARIATION 14.6 (11.5-15.0); RED BLOOD CELL COUNT(AUTO) 3.38 MIL/uL (4.0-5.2); WHITE BLOOD COUNT (AUTO) 7.6 K/uL (4.3-11.0)
--- NOTE | 2017-08-19 06:59 | NUR ---
RN NOTES PT IS FOR EGD TODAY, KEPT PT ON NPO. GOLYTELY NOT TOLERATED BY THE PT, FLEET ENEMA GIVEN, DR WIGGINS AWARE. PT HAD 2BM, STILL NOTED WITH BLACK TARRY STOOL. TELEMONITOR READS SINUS TACH WITH HEART RATE AT 101. PT CONFUSED, COMBATIVE WHEN TOUCH. VITAL SIGNS STABLE, NO EPISODE OF NAUSEA AND VOMITING. DENIES ANY PAIN AND DISCOMFORT. KEPT PT CLEAN AND DRY. SAFETY MEASURES AND FALL PRECAUTION OBSERVED. WILL ENDORSE TO MORNING RN FOR CONTINUITY OF CARE.
[2017-08-19 07:06] LABS: CALCIUM, SERUM 7.8 mg/dL (8.5-10.1); CARBON DIOXIDE 21 mmol/L (21-32); CHLORIDE 107 mmol/L (98-107); CREATININE 0.8 mg/dL (0.6-1.3); GLUCOSE 83 mg/dL (74-106); PHOSPHORUS 5.9 mg/dL (2.5-4.9); POTASSIUM 4.2 mmol/L (3.5-5.1); SODIUM SERUM 138 mmol/L (136-145); UREA NITROGEN, BLOOD 13 mg/dL (7-18)
[2017-08-19 07:24] LABS: CHOLESTEROL 87 mg/dL (<200); HDL CHOLESTEROL 26 mg/dL (40-60); LDL 47 mg/dL (0-99); THYROID STIMULATING HORMONE 6.456 uIU/mL (0.358-3.74); TRIGLYCERIDES 58 mg/dL (30-150)
[2017-08-19] MEDS: LEVOTHYROXINE SODIUM 25 MCG TABLET PO SCH (07:30)
[2017-08-19 08:00] VITALS: BP 108/60
[2017-08-19] MEDS: BOOST PLUS FOOD-VANILLA 237 ML BOX PO SCH ×2 (08:00→16:42)
--- NOTE | 2017-08-19 08:00 | NUR ---
MED SURG 3 RN AM NOTES PATIENT RECEIVED RESTING IN BED. ALERT AND ORIENTED X 2. VITAL SIGNS STABLE, RESPIRATIONS EVEN AND UNLABORED. NO SIGNS OR SYMPTOMS OF PAIN AND NO SIGNS OF DISTRESS. 18G IV IN LEFT FOREARM INFUSING WELL 0.9NS AT 50ML/HR, WITHOUT COMPLICATIONS. PATIENT ON BED REST WITH BED IN LOW POSITION, BED ALARM ON, SIDE RAILS UP X 3 AND CALL LIGHT WITHIN REACH.
[2017-08-19] MEDS: SPIRONOLACTONE 25 MG TABLET PO SCH (09:00)
[2017-08-19] MEDS: ATORVASTATIN 10 MG TABLET PO SCH ×2 (09:00→21:45)
[2017-08-19] MEDS: MEGESTROL ACETATE SUSP 400 MG/10 ML UDC PO SCH ×2 (09:00→16:42)
[2017-08-19] MEDS: RALOXIFENE 60 MG TABLET PO SCH (09:00)
[2017-08-19] MEDS: ASPIRIN 81 MG TAB.CHEW PO SCH (09:00)
[2017-08-19] MEDS ORDERED: RIVAROXABAN 10 MG TABLET PO SCH (09:00)
[2017-08-19] MEDS: LACTOBACILLUS RHAMNOSUS GG 1 EACH CAP.SPRINK PO SCH ×2 (09:00→16:42)
[2017-08-19] MEDS: CHOLECALCIFEROL 1,000 UNIT TABLET (VIT D3) PO SCH (09:00)
[2017-08-19] MEDS: CALCIUM CARBONATE (1250) 500 MG TABLET PO SCH ×2 (09:00→16:42)
[2017-08-19] MEDS: DONEPEZIL 5 MG TABLET PO SCH (09:00)
[2017-08-19] MEDS: PANTOPRAZOLE 40 MG VIAL IV SCH ×2 (09:14→16:42)
--- NOTE | 2017-08-19 10:30 | NUR ---
WOUND CARE CONSULT: PT PRESENTS WITH RASH TO SACRAL/BUTTOCKS, PERINEAL AND INNER THIGH AREAS, PRESENT ON ADMISSION. RECOMMENDATIONS MADE FOR CARE OF SKIN AND RASH. DISCUSSED WITH NURSING STAFF. PT ON [place] ISOFLEX LOW AIRLOSS BED. ALL SKIN PROTECTION MEASURES IN PLACE. WILL SEE PRN. MEZA IN AGREEMENT WITH PLAN OF CARE. Addendum: 08/19/17 at 1031 by FARZAD LERMA WNDNU Amended: Links added.
[2017-08-19] MEDS: CLOTRIMAZOLE/BETAMETASONE DIPROPIONATE 15 GM TUBE TP SCH ×2 (11:27→16:42)
--- NOTE | 2017-08-19 12:10 | NUR ---
PT WAS BROUGHT TO [facility] WITH STABLE V/S WITH NO S/S OF PAIN OR DISTRESS.CALLED DR WIGGINS AND MADE AWARE THAT PT STILL HAS THICK LIQUIDY DARK STOOL EVEN WITH FLEET ENEMA. PATIENT PICKED UP BY [facility] TRANSPORTATION.
--- NOTE | 2017-08-19 13:24 | NUR ---
PT CAME BACK FROM [facility] S/P EGD AND COLONOSCOPY PROCEDURE.WITH STABLE V/S.PT ALERT BUT SLEEPING MOST OF THE TIME.ON CLEAR LIQUIDS.NO S/S OF PAIN OR DISTRESS.ON BED ALARM.WILL CONTINUE TO MONITOR.CALL LIGHT WITHIN REACH.
[2017-08-19] MEDS: LEVOFLOXACIN 750 MG /D5W 150ML 750 MG in PREMIX 1 EA IV SCH (13:36)
[2017-08-19] MEDS ORDERED: POLYETHYLENE GLYCOL 3350 17 GM POWD.PACK PO PRN (14:00)
[2017-08-19 16:00] VITALS: BP 101/63
[2017-08-19] MEDS ORDERED: LACTOBACILLUS RHAMNOSUS GG 1 EACH CAP.SPRINK PO SCH (17:00)
--- NOTE | 2017-08-19 18:26 | NUR ---
PATIENT IN BED RESTING COMFORTABLY. ALERT AND ORIENTED X2. VITAL SIGNS STABLE, RESPIRATIONS UNLABORED AND EVEN WITH OXYGEN VIA NASAL CANNULA AT 2L/MIN WITH OXYGEN SATURATION OF 98%. NO SIGNS OR SYMPTOMS OF PAIN AND NO SIGNS OR SYMPTOMS OF DISTRESS. 0.9NS VIA RIGHT HAND 20G PERIPHERAL IV INFUSING WELL WITH NO SIGNS OF COMPLICATIONS. BED IN LOW POSITION WITH TWO SIDE RAILS UP AND BED ALARM ON. CALL LIGHT WITHIN REACH. Addendum: 08/19/17 at 1839 by DESTINY CORRALES RN MED SURG 3 RN CLOSING NOTE
--- NOTE | 2017-08-19 19:45 | NUR ---
MS/RN OPENING NOTES PATIENT IN BED, HOB ELEVATED, ALERT, ORIENTED X1, CAN RESPONSE BY NAME AND TOUCH, REQUIRE OXYGEN VIA NC FOR BREATHING AT 2L, REMINDED TOP KEEP IT ON FOR ASSISTANCE, DVT PUMP PLACED, IV FLUIDS RUNNING IN LEFT HAND, OBSERVE NO GRIMACE AND GUARDING. RECEIVED ENDORSEMENT FROM AM RN FOR JEMMA. WILL CONTINUE TO MONITOR.
[2017-08-19 20:14] VITALS: BP 115/71
[2017-08-19 20:18] VITALS: BP 115/71
[2017-08-20] MEDS: IV NS 0.9% 1,000 ML IV PRN (00:15)
[2017-08-20 07:16] LABS: BASOPHILS % (AUTO) 0.1 % (0.0-2.0); HEMATOCRIT 26 % (33-45); HEMOGLOBIN 8.8 g/dL (11.5-14.8); LYMPHOCYTES # (AUTO) 1.9 /CMM (0.8-4.8); MEAN CORPUSCULAR HEMOGLOBIN 27 PG (26.0-33.0); MEAN CORPUSCULAR HGB CONC 34 g/dl (31.0-36.0); MEAN CORPUSCULAR VOLUME 81 fL (82-100); MONOCYTES # (AUTO) 0.8 /CMM (0.1-1.30); MONOCYTES % (AUTO) 7.2 % (2.0-12.0); NEUTROPHILS # (AUTO) 8.2 /CMM (1.8-8.9); NEUTROPHILS % (AUTO) 75.7 % (43.0-81.0); PLATELET COUNT (AUTO) 465 /CMM (150-450); RED BLOOD CELL COUNT(AUTO) 3.24 MIL/uL (4.0-5.2); WHITE BLOOD COUNT (AUTO) 10.9 K/uL (4.3-11.0)
[2017-08-20] MEDS: LEVOTHYROXINE SODIUM 25 MCG TABLET PO SCH (07:30)
[2017-08-20 07:38] LABS: CALCIUM, SERUM 7.7 mg/dL (8.5-10.1); CARBON DIOXIDE 21 mmol/L (21-32); CHLORIDE 108 mmol/L (98-107); CREATININE 0.8 mg/dL (0.6-1.3); GLUCOSE 103 mg/dL (74-106); POTASSIUM 3.6 mmol/L (3.5-5.1); SODIUM SERUM 139 mmol/L (136-145); UREA NITROGEN, BLOOD 14 mg/dL (7-18)
[2017-08-20 08:00] VITALS: BP 100/52
[2017-08-20] MEDS: BOOST PLUS FOOD-VANILLA 237 ML BOX PO SCH ×2 (08:00→17:00)
--- NOTE | 2017-08-20 08:51 | NUR ---
309-1 MS/RN NOTES PATIENT ABLE TO SLEEP DURING THE NIGHT, AROUSABLE, REQUIRE EXTENSIVE ASSISTANCE , ON 2 L VIA NC, REPORTED NO PAIN, ON IV HYDRATION, PATENCY CHECK, WILL ENDORSE TO AM RN FOR JEMMA.
[2017-08-20] MEDS: CALCIUM CARBONATE (1250) 500 MG TABLET PO SCH ×2 (09:00→17:14)
[2017-08-20] MEDS: MEGESTROL ACETATE SUSP 400 MG/10 ML UDC PO SCH ×2 (09:00→17:14)
[2017-08-20] MEDS: DONEPEZIL 5 MG TABLET PO SCH (09:00)
[2017-08-20] MEDS: SPIRONOLACTONE 25 MG TABLET PO SCH (09:00)
[2017-08-20] MEDS: LACTOBACILLUS RHAMNOSUS GG 1 EACH CAP.SPRINK PO SCH ×2 (09:00→17:14)
[2017-08-20] MEDS: CHOLECALCIFEROL 1,000 UNIT TABLET (VIT D3) PO SCH (09:00)
[2017-08-20] MEDS: DOCUSATE SODIUM 100 MG CAPSULE PO SCH (09:00)
[2017-08-20] MEDS: RALOXIFENE 60 MG TABLET PO SCH (09:00)
[2017-08-20] MEDS: ASPIRIN 81 MG TAB.CHEW PO SCH (09:00)
[2017-08-20] MEDS: PANTOPRAZOLE 40 MG VIAL IV SCH ×2 (10:10→17:30)
--- NOTE | 2017-08-20 10:22 | NUR ---
MS/RN PT REFUSED AM PO MEDS. ANGELA BRODY, CHARGE NURSE MADE AWARE. PSYCH CONSULT BY DR SWAIN ORDERED
[2017-08-20] MEDS ORDERED: RIVAROXABAN 10 MG TABLET PO SCH (10:30)
[2017-08-20] MEDS: CLOTRIMAZOLE/BETAMETASONE DIPROPIONATE 15 GM TUBE TP SCH ×2 (11:55→17:15)
[2017-08-20] MEDS: LEVOFLOXACIN 750 MG /D5W 150ML 750 MG in PREMIX 1 EA IV SCH (11:56)
[2017-08-20 16:00] VITALS: BP 107/58
[2017-08-20] MEDS: RIVAROXABAN 15 MG TABLET PO SCH (17:29)
--- NOTE | 2017-08-20 17:54 | NUR ---
MS/RN PT AGREED TO TAKE THE MEDS , GIVEN CRASHED WITH THE FOOD
[2017-08-20 18:00] LABS: HEMOGLOBIN 8.6 g/dL (11.5-14.8)
--- NOTE | 2017-08-20 19:25 | NUR ---
MS/RN OPENING NOTES PATIENT IN BED, RESTING RESPIRATIONS EVEN AND UNLABORED, RECEIVED REPORT FROM AM RN FOR JEMMA. PATIENT, SKIN WARM TO TOUCH, HOB SEMI LYNN, BED IN LOCK POSITION, REQUIRE FREQUENT ROUNDS AND REPOSITION, KEEP SKIN INTACT AND DRY,
[2017-08-20 19:59] VITALS: BP 101/62
[2017-08-20 20:00] VITALS: BP 101/62
[2017-08-20] MEDS: ATORVASTATIN 10 MG TABLET PO SCH (21:40)
--- NOTE | 2017-08-21 06:44 | NUR ---
309-1 PATIENT IN BES, HOB ELEVATES, ABLE TO SLEEP COMFORTABLY, REQUIRE REPOSTION, PROVIDED FLUIDS, SKIN TREATMENT GIVEN, MONITORING FOR ANY CHANGES, WILL CONTINUE TO MONITOR. WILL ENDORSE TO AM RN FOR JEMMA.
--- NOTE | 2017-08-21 07:44 | NUR ---
MS/RN OPENING NOTE PATIENT IN BED IN STABLE CONDITION. A/O X 1-2 WITH EPISODES OF CONFUSION SOMETIMES. NO SIGNS OF ACUTE DISTRESS. NO COMPLAIN OF PAIN OR DISCOMFORT. ALL NEEDS ATTENDED TO. CALL LIGHT WITHIN REACH. WILL CONTINUE TO MONITOR TO ENSURE SAFETY.
[2017-08-21 08:00] VITALS: BP 94/61
[2017-08-21] MEDS: CHOLECALCIFEROL 1,000 UNIT TABLET (VIT D3) PO SCH (08:27)
[2017-08-21] MEDS: DOCUSATE SODIUM 100 MG CAPSULE PO SCH (08:27)
[2017-08-21] MEDS: MEGESTROL ACETATE SUSP 400 MG/10 ML UDC PO SCH ×2 (08:27→16:16)
[2017-08-21] MEDS: LEVOTHYROXINE SODIUM 25 MCG TABLET PO SCH (08:27)
[2017-08-21] MEDS: DONEPEZIL 5 MG TABLET PO SCH (08:27)
[2017-08-21] MEDS: CLOTRIMAZOLE/BETAMETASONE DIPROPIONATE 15 GM TUBE TP SCH ×2 (08:27→16:16)
[2017-08-21] MEDS: ASPIRIN 81 MG TAB.CHEW PO SCH (08:27)
[2017-08-21] MEDS: LACTOBACILLUS RHAMNOSUS GG 1 EACH CAP.SPRINK PO SCH ×2 (08:27→16:13)
[2017-08-21] MEDS: PANTOPRAZOLE 40 MG VIAL IV SCH ×2 (08:27→16:16)
[2017-08-21] MEDS: SPIRONOLACTONE 25 MG TABLET PO SCH (08:27)
[2017-08-21] MEDS: RALOXIFENE 60 MG TABLET PO SCH (08:27)
[2017-08-21] MEDS: CALCIUM CARBONATE (1250) 500 MG TABLET PO SCH ×2 (08:28→16:14)
[2017-08-21] MEDS: BOOST FOOD- BERRY 237 ML BOX PO SCH ×2 (09:30→18:42)
[2017-08-21 09:52] LABS: BASOPHILS % (AUTO) 0.5 % (0.0-2.0); EOSINOPHILS # (AUTO) 0.1 /CMM (0.0-0.7); EOSINOPHILS % (AUTO) 0.9 % (0.0-6.0); HEMATOCRIT 27 % (33-45); HEMOGLOBIN 9.6 g/dL (11.5-14.8); LYMPHOCYTES # (AUTO) 1.7 /CMM (0.8-4.8); LYMPHOCYTES % (AUTO) 20.8 % (20.0-44.0); MEAN CORPUSCULAR HEMOGLOBIN 28 PG (26.0-33.0); MEAN CORPUSCULAR HGB CONC 35 g/dl (31.0-36.0); MEAN CORPUSCULAR VOLUME 78 fL (82-100); MONOCYTES # (AUTO) 0.6 /CMM (0.1-1.30); NEUTROPHILS % (AUTO) 70.8 % (43.0-81.0); PLATELET COUNT (AUTO) 568 /CMM (150-450); RDW COEFFICIENT OF VARIATION 13.2 (11.5-15.0); RED BLOOD CELL COUNT(AUTO) 3.48 MIL/uL (4.0-5.2); WHITE BLOOD COUNT (AUTO) 8.4 K/uL (4.3-11.0)
--- NOTE | 2017-08-21 10:45 | NUR ---
MS/RN CRITICAL LAB RECEIVED CALL FROM [facility] AND THEY MADE AWARE PATIENT URINE C & S POSITIVE FOR CRE, KLEBSIELLA OF URINE. EQUIPMENT OPERATOR ANDREY AWARE,PER ANDREY HE WILL TAKE A LOOK AT IT AND GIVE ORDERS NEEDED.
[2017-08-21] MEDS ORDERED: FEE PK DOSING 1 MIN EA MC ONE (12:24)
--- NOTE | 2017-08-21 13:02 | NUR ---
MS/RN ADVANCE DIRECTIVE DAUGHTER JADYN (DPOA) BROUGHT PATIENT'S ADVANCE DIRECTIVE STATING DNR/DNI SIGNED BY PATIENT. ANDREY BRODY HUMAN RESOURCES BENEFITS SPECIALIST AWARE WITH CODE STATUS OF DNR/DNI
[2017-08-21] MEDS: GENTAMICIN 80 MG in IV D5W 100 ML IV SCH (13:46)
--- NOTE | 2017-08-21 15:48 | NUR ---
AUDIOLOGY DOCTOR NOTES RECEIVED PATIENT FROM JUAN SAUNDERS, IN BED RESTING. NO ACUTE DISTRESS, NO SOB NOTED. NO S/S OF PAIN OR DISCOMFORT. IV SITE INTACT AND PATENT. KEPT SAFE AND COMFORTABLE IN BED. BED IN LOW LOCKED POSITION. SIDERAILS UP, CALL LIGHT IN REACH. WILL CONTINUE TO MONITOR ACCORDINGLY.
[2017-08-21 16:00] VITALS: BP 94/60
[2017-08-21] MEDS: RIVAROXABAN 15 MG TABLET PO SCH (16:15)
--- NOTE | 2017-08-21 19:31 | NUR ---
RN CLOSING NOTES PATIENT IN BED RESTING. NO ACUTE DISTRESS, NO SOB NOTED. ALL NEEDS ATTENDED AND PROVIDED. KEPT PATIENT SAFE AND COMFORTABLE IN BED. BED IN LOW/LOCKED POSITION, SIDERAILS UPX2, CALL LIGHT IN REACH, ENDORSED TO NIGHT RN FOR JEMMA.
--- NOTE | 2017-08-21 19:35 | NUR ---
MS/RN OPENING NOTES PT RECEIVED HOB ELEVATED. ASLEEP BUT AROUSABLE TO NAME/TOUCH. ON ROOM AIR, BREATHING EVEN AND UNLABORED. NO S/S OF SOB, PAIN OR DISTRESS. IV TO RFA PATENT AND INTACT. BED IN LOW/LOCKED POSITION WITH CALL LIGHT IN REACH. SIDE RAILS UPX2. WILL CONTINUE TO MONITOR
[2017-08-21 20:00] VITALS: BP 93/56
[2017-08-21] MEDS: ATORVASTATIN 10 MG TABLET PO SCH (22:18)
--- NOTE | 2017-08-22 07:11 | NUR ---
MS/RN CLOSING NOTES PT ASLEEP, A/OX2. ON ROOM AIR, BREATHING EVEN AND UNLABORED. NO S/S OF PAIN OR SOB. IV TO RFA AND LFA PATENT AND INTACT. ALL DUE MEDS GIVEN. WOUND CARE PROVIDED ORDERED. TURNED/REPOSITIONED Q2H. HEELS OFFLOADED AT ALL TIMES. BED REMAINS IN LOW/LOCKED POSITION WITH CALL LIGHT IN REACH. SIDE RAILS UXP2. NO SIGNIFICANT CHANGES OVERNIGHT. WILL ENDORSE TO DAY SHIFT RN JEMMA.
--- NOTE | 2017-08-22 07:25 | NUR ---
ms rn initial notes Received patient in bed, asleep, head of bed elevated, no SOB or distress noted. On room air with 02 sat of 98%, no facial grimace noted. IV intact and patent, HL only. Kept patient clean and comfortable in bed, call light with in patient reach, will continue to monitor accordingly.
[2017-08-22] MEDS: LEVOTHYROXINE SODIUM 25 MCG TABLET PO SCH (07:37)
[2017-08-22] MEDS: BOOST FOOD- BERRY 237 ML BOX PO SCH ×2 (07:37→16:55)
[2017-08-22 08:00] VITALS: BP 98/56
[2017-08-22 08:00] LABS: CALCIUM, SERUM 7.6 mg/dL (8.5-10.1); CARBON DIOXIDE 17 mmol/L (21-32); CHLORIDE 107 mmol/L (98-107); CREATININE 0.9 mg/dL (0.6-1.3); GLUCOSE 125 mg/dL (74-106); POTASSIUM 3.8 mmol/L (3.5-5.1); SODIUM SERUM 136 mmol/L (136-145); UREA NITROGEN, BLOOD 21 mg/dL (7-18)
[2017-08-22] MEDS: CALCIUM CARBONATE (1250) 500 MG TABLET PO SCH ×2 (08:27→16:54)
[2017-08-22] MEDS: DOCUSATE SODIUM 100 MG CAPSULE PO SCH (08:27)
[2017-08-22] MEDS: SPIRONOLACTONE 25 MG TABLET PO SCH (08:27)
[2017-08-22] MEDS: LACTOBACILLUS RHAMNOSUS GG 1 EACH CAP.SPRINK PO SCH ×2 (08:27→16:54)
[2017-08-22] MEDS: PANTOPRAZOLE 40 MG VIAL IV SCH ×2 (08:27→16:54)
[2017-08-22] MEDS: CHOLECALCIFEROL 1,000 UNIT TABLET (VIT D3) PO SCH (08:27)
[2017-08-22] MEDS: DONEPEZIL 5 MG TABLET PO SCH (08:27)
[2017-08-22] MEDS: RALOXIFENE 60 MG TABLET PO SCH (08:27)
[2017-08-22] MEDS: ASPIRIN 81 MG TAB.CHEW PO SCH (08:27)
[2017-08-22] MEDS: MEGESTROL ACETATE SUSP 400 MG/10 ML UDC PO SCH ×2 (08:27→16:53)
[2017-08-22] MEDS: CLOTRIMAZOLE/BETAMETASONE DIPROPIONATE 15 GM TUBE TP SCH ×2 (08:29→16:54)
[2017-08-22 09:13] LABS: BASOPHILS % (AUTO) 0.3 % (0.0-2.0); EOSINOPHILS % (AUTO) 0.1 % (0.0-6.0); HEMATOCRIT 31 % (33-45); HEMOGLOBIN 10.3 g/dL (11.5-14.8); LYMPHOCYTES # (AUTO) 1.4 /CMM (0.8-4.8); LYMPHOCYTES % (AUTO) 17.1 % (20.0-44.0); MEAN CORPUSCULAR HEMOGLOBIN 27 PG (26.0-33.0); MEAN CORPUSCULAR HGB CONC 33 g/dl (31.0-36.0); MEAN CORPUSCULAR VOLUME 80 fL (82-100); MONOCYTES # (AUTO) 0.4 /CMM (0.1-1.30); MONOCYTES % (AUTO) 5.1 % (2.0-12.0); NEUTROPHILS # (AUTO) 6.2 /CMM (1.8-8.9); NEUTROPHILS % (AUTO) 77.4 % (43.0-81.0); PLATELET COUNT (AUTO) 332 /CMM (150-450); RDW COEFFICIENT OF VARIATION 14.2 (11.5-15.0); RED BLOOD CELL COUNT(AUTO) 3.88 MIL/uL (4.0-5.2)
[2017-08-22 12:09] LABS: BAND % (MANUAL) 2 % (0.0-5.0); LYMPHOCYTES % (MANUAL) 13 % (16-48); MONOCYTES % (MANUAL) 5 % (0-11.0); NEUTROPHILS % (MANUAL) 80 (42-76)
[2017-08-22] MEDS: GENTAMICIN 80 MG in IV D5W 100 ML IV SCH (13:30)
[2017-08-22 16:00] VITALS: BP 92/52
--- NOTE | 2017-08-22 16:31 | NUR ---
ms rn notes Spoke to Kit MAR regarding patient noted with cough and ordered chest x-ray. All orders carried out and noted. Will continue to monitor accordingly.
[2017-08-22] MEDS: RIVAROXABAN 15 MG TABLET PO SCH (16:53)
[2017-08-22 17:35] VITALS: BP 92/52
--- NOTE | 2017-08-22 18:45 | NUR ---
MS/RN CLOSING NOTES Patient in bed, asleep, HOB elevated, no SOB or distress noted. Supplemental O2 2L/min per NC with O2 sat of 93%. No facial grimace noted. IV intact and patent, HL only. Patient is on contact precautions for CRE. Kept patient clean and comfortable in bed, safety measures in place, call light within patient reach. Will endorse patient to shift lab technician for continuation of care.
--- NOTE | 2017-08-22 19:15 | NUR ---
MS/RN OPENING NOTES PT RECEIVED RESTING COMFORTABLY IN BED. ON 2L O2 VIA NC, BREATHING EVEN AND UNLABORED. IN NO DISTRESS. NO FACIAL GRIMACING OR SIGNS OF PAIN. IV TO RFA AND LFA PATENT AND INTACT. BED IN LOW/LOCKED POSITION WITH CALL LIGHT IN REACH. SIDE RAILS UPX3. WILL CONTINUE TO MONITOR
[2017-08-22 20:00] VITALS: BP 100/55
[2017-08-22 21:31] VITALS: BP 100/55
[2017-08-22] MEDS: ATORVASTATIN 10 MG TABLET PO SCH (22:01)
--- NOTE | 2017-08-23 06:33 | NUR ---
MS/RN CLOSING NOTES PT RESTING COMFORTABLY IN BED. EYES OPEN. ON 2L O2 VIA NC, BREATHING EVEN AND UNLABORED. IV TO RFA AND LFA PATENT AND INTACT. KEPT PT CLEAN AND DRY. TURNED/REPOSITIONED Q2H. HEELS OFFLOADED. NO SIGNIFICANT CHANGES OVERNIGHT. KEPT PT COMFORTABLE. BED IN LOW/LOCKED POSITION WITH CALL LIGHT IN REACH. SIDE RAILS UPX2. WILL ENDORSE TO DAY SHIFT RN JEMMA.
[2017-08-23 07:40] LABS: BASOPHILS % (AUTO) 0.3 % (0.0-2.0); EOSINOPHILS % (AUTO) 0.2 % (0.0-6.0); HEMATOCRIT 28 % (33-45); HEMOGLOBIN 9.5 g/dL (11.5-14.8); LYMPHOCYTES # (AUTO) 2.2 /CMM (0.8-4.8); LYMPHOCYTES % (AUTO) 19.2 % (20.0-44.0); MEAN CORPUSCULAR HEMOGLOBIN 27 PG (26.0-33.0); MEAN CORPUSCULAR HGB CONC 33 g/dl (31.0-36.0); MEAN CORPUSCULAR VOLUME 81 fL (82-100); MONOCYTES # (AUTO) 0.6 /CMM (0.1-1.30); MONOCYTES % (AUTO) 5.4 % (2.0-12.0); NEUTROPHILS # (AUTO) 8.6 /CMM (1.8-8.9); NEUTROPHILS % (AUTO) 74.9 % (43.0-81.0); PLATELET COUNT (AUTO) 501 /CMM (150-450); RDW COEFFICIENT OF VARIATION 14.4 (11.5-15.0); RED BLOOD CELL COUNT(AUTO) 3.52 MIL/uL (4.0-5.2); WHITE BLOOD COUNT (AUTO) 11.5 K/uL (4.3-11.0)
--- NOTE | 2017-08-23 07:52 | NUR ---
MS RN OPENING NOTES. Received patient in bed, asleep, arousable with verbal stimuli, head of bed elevated, no SOB or distress noted. Respirations even and unlabored. On 2L/min Oxygen with O2 sat of 94%, no facial grimace noted. IV intact and patent, HL only. Kept patient clean and comfortable in bed. bed in low/locked position, call light within patient reach, will continue to monitor.
[2017-08-23 08:00] VITALS: BP 102/62
[2017-08-23 08:06] LABS: CALCIUM, SERUM 7.5 mg/dL (8.5-10.1); CARBON DIOXIDE 20 mmol/L (21-32); CHLORIDE 107 mmol/L (98-107); CREATININE 0.7 mg/dL (0.6-1.3); GLUCOSE 97 mg/dL (74-106); POTASSIUM 3.5 mmol/L (3.5-5.1); SODIUM SERUM 138 mmol/L (136-145); UREA NITROGEN, BLOOD 26 mg/dL (7-18)
[2017-08-23] MEDS: BOOST FOOD- BERRY 237 ML BOX PO SCH ×2 (08:20→16:35)
[2017-08-23] MEDS: CHOLECALCIFEROL 1,000 UNIT TABLET (VIT D3) PO SCH (08:21)
[2017-08-23] MEDS: MEGESTROL ACETATE SUSP 400 MG/10 ML UDC PO SCH ×2 (08:21→16:36)
[2017-08-23] MEDS: PANTOPRAZOLE 40 MG VIAL IV SCH ×2 (08:21→16:48)
[2017-08-23] MEDS: SPIRONOLACTONE 25 MG TABLET PO SCH (08:21)
[2017-08-23] MEDS: RALOXIFENE 60 MG TABLET PO SCH (08:21)
[2017-08-23] MEDS: LEVOTHYROXINE SODIUM 25 MCG TABLET PO SCH (08:21)
[2017-08-23] MEDS: LACTOBACILLUS RHAMNOSUS GG 1 EACH CAP.SPRINK PO SCH ×2 (08:21→16:36)
[2017-08-23] MEDS: DONEPEZIL 5 MG TABLET PO SCH (08:21)
[2017-08-23] MEDS: ASPIRIN 81 MG TAB.CHEW PO SCH (08:22)
[2017-08-23] MEDS: CALCIUM CARBONATE (1250) 500 MG TABLET PO SCH ×2 (08:25→16:36)
[2017-08-23] MEDS: DOCUSATE SODIUM 100 MG CAPSULE PO SCH (08:27)
[2017-08-23] MEDS: CLOTRIMAZOLE/BETAMETASONE DIPROPIONATE 15 GM TUBE TP SCH ×2 (08:28→16:51)
--- NOTE | 2017-08-23 09:00 | NUR ---
ms rn notes waste all patient's due meds at this time due to patient is unable to swallow and informed MD and verified by other RN and kept NPO. All orders carried out and noted.
[2017-08-23] MEDS: GENTAMICIN 80 MG in IV D5W 100 ML IV SCH (13:14)
--- NOTE | 2017-08-23 13:30 | NUR ---
MS RN NOTES OXYGEN TITRATED TO 3L/MIN VIE NC DUE TO PATIENTS SPO2 LEVEL OF 87%. AWARE.
[2017-08-23] MEDS ORDERED: IV NS 0.9% 500 ML IV ONE (15:00)
[2017-08-23 16:00] VITALS: BP 142/81
--- NOTE | 2017-08-23 16:07 | NUR ---
Patient's fever 102.6. notified. order obtained for Tylenol 650mg rectal suppository.
[2017-08-23] MEDS: ACETAMINOPHEN 650 MG/SUPP.RECT RC PRN (16:23)
[2017-08-23] MEDS: RIVAROXABAN 15 MG TABLET PO SCH (16:37)
--- NOTE | 2017-08-23 17:00 | NUR ---
MS RN NOTES HELD PATIENT'S AFTERNOON PO MEDICATIONS DUE TO PATIENT NPO STATUS. AWARE.
[2017-08-23] MEDS: PIPERACILLIN /TAZOBACTAM 2.25 G in IV D5W 50 ML IV SCH ×2 (17:10→23:11)
[2017-08-23] MEDS: IV D5/ 0.9% NACL 1,000 ML IV PRN (17:11)
--- NOTE | 2017-08-23 19:22 | NUR ---
ms rn closing notes All needs attended, and anticipated, kept patient clean and comfortable in bed, call light with in patient reach, endorsed to next shift RN to continue care.
[2017-08-23 20:00] VITALS: BP_SYST 100; BP_SYST 148; BP_DIAS 53; BP_DIAS 77
--- NOTE | 2017-08-23 20:00 | NUR ---
MS RN OPENING NOTES: RECEIVED PATIENT IN BED, ASLEEP, EASILY AROUSES.PATIENT APPEARS CONFUSED AND DISORIENTED. WITH IV ACCESS ON LEFT FOREARM G#18- FLUSHING DONE, AND ANOTHER IV ACCESS ON THE RIGHT FOREARM G#22 WITH IVF D5 NS@75ML/HR NO SIGNS OF REDNESS OR PHLEBITIS ON BOTH SITES. PATIENT ON NPO STATUS PER MD ORDER. PATIENT FOR SWALLOW EVAL. BED IN LOCKED AND LOW POSITION. CALL LIGHT WITHIN PATIENT'S REACH. SAFETY AND FALL PRECAUTIONS OBSERVED. REALITY ORIENTATION DONE. WILL CONTINUE TO MONITOR PATIENT.
[2017-08-23] MEDS: IPRATROPIUM NEB FS 0.5 MG/2.5 ML AMPUL.NEB NEB SCH (20:28)
[2017-08-23] MEDS: ALBUTEROL FS 2.5 MG/0.5 ML VIAL.NEB NEB SCH (20:28)
[2017-08-23] MEDS: ATORVASTATIN 10 MG TABLET PO SCH (22:00)
--- NOTE | 2017-08-23 22:00 | NUR ---
MS RN NOTES: PATIENT'S LIPITOR MEDICATION NOT ADMINISTERED PATIENT IS ON NPO STATUS THIS TIME UNTIL FURTHER ORDERS BE GIVEN. WILL ENDORSE TO DAY SHIFT NURSE.
[2017-08-24] MEDS: IPRATROPIUM NEB FS 0.5 MG/2.5 ML AMPUL.NEB NEB SCH ×4 (01:30→20:06)
[2017-08-24] MEDS: ALBUTEROL FS 2.5 MG/0.5 ML VIAL.NEB NEB SCH ×4 (01:30→20:06)
[2017-08-24] MEDS: PIPERACILLIN /TAZOBACTAM 2.25 G in IV D5W 50 ML IV SCH ×3 (05:30→17:02)
[2017-08-24] MEDS: IV D5/ 0.9% NACL 1,000 ML IV PRN (05:32)
--- NOTE | 2017-08-24 07:00 | NUR ---
MS RN CLOSING NOTES: PATIENT IN BED,AWAKE, WITH IVF AT RIGHT FA G#22 D5NS @ 75ML/HR, AND IV HEPLOCK ON LEFT FOREARM G#22, NO SIGNS OF REDNESS OR PHLEBITIS ON SITE. NO SIGNS OF RESPIRATORY DISTRESS NOTES THIS TIME. PATIENT ABLE TO RESPOND WHEN CALLED BY NAME. O2 INHALATION AT 3LPM SATURATING AT 95-96%. KEPT PATIENT WARM AND DRY. PLACED BED IN LOW AND LOCKED POSITION. ENDORSE PATIENT TO DAY SHIFT NURSE.
--- NOTE | 2017-08-24 07:20 | NUR ---
RN NOTES PT IS LAYING DOWN IN BED, SLEEPING COMFORTABLY. PT ON 3L O2, RESPIRATIONS ARE EVEN AND UNLABORED. IV ON RFA INTACT AND SL, IV ON LFA INTACT AND RUNNING D5NS @75ML/HR. SAFETY MEASURES ARE IN PLACE, CALL LIGHT IS IN REACH. WILL CONTINUE TO MONITOR.
[2017-08-24] MEDS: LEVOTHYROXINE SODIUM 25 MCG TABLET PO SCH (07:30)
[2017-08-24 08:00] VITALS: BP 92/58
[2017-08-24] MEDS: BOOST FOOD- BERRY 237 ML BOX PO SCH ×2 (08:00→16:07)
[2017-08-24] MEDS: DOCUSATE SODIUM 100 MG CAPSULE PO SCH (08:06)
[2017-08-24] MEDS: ASPIRIN 81 MG TAB.CHEW PO SCH (08:06)
[2017-08-24] MEDS: CALCIUM CARBONATE (1250) 500 MG TABLET PO SCH ×2 (08:06→16:07)
[2017-08-24] MEDS: CHOLECALCIFEROL 1,000 UNIT TABLET (VIT D3) PO SCH (08:06)
[2017-08-24] MEDS: LACTOBACILLUS RHAMNOSUS GG 1 EACH CAP.SPRINK PO SCH ×2 (08:06→16:08)
[2017-08-24] MEDS: MEGESTROL ACETATE SUSP 400 MG/10 ML UDC PO SCH ×2 (08:07→16:07)
[2017-08-24] MEDS: DONEPEZIL 5 MG TABLET PO SCH (08:07)
[2017-08-24] MEDS: RALOXIFENE 60 MG TABLET PO SCH (08:07)
[2017-08-24] MEDS: SPIRONOLACTONE 25 MG TABLET PO SCH (08:32)
[2017-08-24 08:45] LABS: BASOPHILS % (AUTO) 0.1 % (0.0-2.0); EOSINOPHILS % (AUTO) 0.1 % (0.0-6.0); HEMATOCRIT 25 % (33-45); HEMOGLOBIN 8.2 g/dL (11.5-14.8); LYMPHOCYTES # (AUTO) 1.4 /CMM (0.8-4.8); LYMPHOCYTES % (AUTO) 10.7 % (20.0-44.0); MEAN CORPUSCULAR HEMOGLOBIN 27 PG (26.0-33.0); MEAN CORPUSCULAR HGB CONC 33 g/dl (31.0-36.0); MEAN CORPUSCULAR VOLUME 80 fL (82-100); MONOCYTES # (AUTO) 0.5 /CMM (0.1-1.30); MONOCYTES % (AUTO) 4.3 % (2.0-12.0); NEUTROPHILS # (AUTO) 10.8 /CMM (1.8-8.9); NEUTROPHILS % (AUTO) 84.8 % (43.0-81.0); PLATELET COUNT (AUTO) 400 /CMM (150-450); RDW COEFFICIENT OF VARIATION 14.5 (11.5-15.0); RED BLOOD CELL COUNT(AUTO) 3.09 MIL/uL (4.0-5.2); WHITE BLOOD COUNT (AUTO) 12.7 K/uL (4.3-11.0)
[2017-08-24 09:01] LABS: CALCIUM, SERUM 7.3 mg/dL (8.5-10.1); CARBON DIOXIDE 21 mmol/L (21-32); CHLORIDE 111 mmol/L (98-107); CREATININE 0.7 mg/dL (0.6-1.3); GLUCOSE 116 mg/dL (74-106); POTASSIUM 3.2 mmol/L (3.5-5.1); SODIUM SERUM 142 mmol/L (136-145); UREA NITROGEN, BLOOD 21 mg/dL (7-18)
[2017-08-24] MEDS: CLOTRIMAZOLE/BETAMETASONE DIPROPIONATE 15 GM TUBE TP SCH ×2 (09:12→16:08)
[2017-08-24] MEDS: PANTOPRAZOLE 40 MG VIAL IV SCH ×2 (09:12→16:07)
--- NOTE | 2017-08-24 13:00 | NUR ---
RN NOTES PER SPEECH THERAPIST, PT CAN TOLERATE PUREED DIET WITH NECTAR THICK LIQUIDS. DUE TO HISTORY OF ASPIRATION PNEUMONIA, PT NEEDS TO HAVE HOB UP AT ALL TIMES.
--- NOTE | 2017-08-24 13:20 | NUR ---
RN NOTES GENTAMICIN TROUGH WAS DRAWN LATE. WILL GIVE GENTAMICIN AFTER TROUGH RESULTS.
[2017-08-24] MEDS: ONDANSETRON HCL/PF 4 MG/2 ML VIAL IVP PRN (14:06)
[2017-08-24] MEDS: GENTAMICIN 80 MG in IV D5W 100 ML IV SCH (14:24)
[2017-08-24 16:00] VITALS: BP 93/54
[2017-08-24] MEDS ORDERED: POTASSIUM CHLORIDE 20 MEQ TAB.PRT.SR PO ONE (16:00)
[2017-08-24] MEDS: RIVAROXABAN 15 MG TABLET PO SCH (16:07)
--- NOTE | 2017-08-24 18:29 | NUR ---
RN NOTES PT IS RESTING COMFORTABLY IN BED WITH HOB UP AND FAMILY AT BEDSIDE. PT ON 3L O2, RESPIRATIONS ARE EVEN AND UNLABORED. PT TOOK AFTERNOON MEDICATIONS ORDERED WITH NO DIFFICULTY SWALLOWING. PT HAD PHYSICAL THERAPY EVALUATION, HIGH COMPLEX CARE. IV ON RFA INTACT AND RUNNING D5NS @ 75ML/HR. PT KEPT CLEAN AND DRY AND TURNED Q2HRS. SAFETY MEASURES ARE IN PLACE, CALL LIGHT IS IN REACH. WILL ENDORSE TO CORROSION CONTROL SPECIALIST RN FOR CONTINUITY OF CARE.
--- NOTE | 2017-08-24 18:50 | NUR ---
RN NOTES BLADDER SCAN DONE, 434 ML RESIDUAL NOTED. PER MD ORDER, STRAIGHT CATH NEEDED FOR >300ML. WILL ENDORSE TO BENCH TECHNICIAN RN.
--- NOTE | 2017-08-24 19:55 | NUR ---
RN OPENING NOTES RECEIVED REPORT FROM DAYSCAFT RN. FOUND Pt ASLEEP. NO S/S OF ACUTE DISTRESS OR SOB NOTED. RESPIRATIONS EVEN AND UNLABORED, WITH EQUAL CHEST RISE AND FALL. Pt IS A/OX1, CONFUSED, BUT IS VERBAL. IV ACCESS ON RFA #22G, IVF D5NS @75ML/HR, INFUSING WELL. GUSTAFSON CATHETER IN PLACE. SAFETY MEASURES IN PLACE. BED LOW, LOCKED, HOB ELEVATED, SIDE RAILS UP, CALL LIGHT AND BED SIDE TABLE WITHIN REACH. WILL CONTINUE TO MONITOR Pt THROUGHOUT THE NIGHT FOR SAFETY. Addendum: 08/25/17 at 0209 by HARSHAL TOMAS RN TYPO: Pt HAS NO GUSTAFSON CATHETER.
[2017-08-24 20:00] VITALS: BP 93/49
[2017-08-24] MEDS ORDERED: METOCLOPRAMIDE HCL 10 MG/2 ML VIAL IV PRN (20:00)
[2017-08-24 20:11] VITALS: BP 93/49
[2017-08-25] MEDS: PIPERACILLIN /TAZOBACTAM 2.25 G in IV D5W 50 ML IV SCH ×3 (00:20→12:36)
[2017-08-25] MEDS: ATORVASTATIN 10 MG TABLET PO SCH ×2 (00:23→21:42)
[2017-08-25] MEDS: ALBUTEROL FS 2.5 MG/0.5 ML VIAL.NEB NEB SCH ×4 (01:13→19:50)
[2017-08-25] MEDS: IPRATROPIUM NEB FS 0.5 MG/2.5 ML AMPUL.NEB NEB SCH ×4 (01:13→19:50)
[2017-08-25] MEDS: IV D5/ 0.9% NACL 1,000 ML IV PRN (03:56)
--- NOTE | 2017-08-25 06:15 | NUR ---
RN NOTES BLADDER SCANNER URINE RESIDUAL LESS THAN 160CC. STRAIGHT CATH ONLY IF >300CC.
--- NOTE | 2017-08-25 06:45 | NUR ---
RN CLOSING NOTES NO SIGNIFICANT CHANGES IN Pt's CONDITION DURING THE SHIFT. Pt REMAINS STABLE AT THIS TIME. NO S/S OF ACUTE DISTRESS OR SOB NOTED DURING THE NIGHT. ALL NEEDS MET AND ATTENDED TO. SAFETY MEASURES IN PLACE. WILL ENDORSE TO DAYSHIFT RN.
--- NOTE | 2017-08-25 07:00 | NUR ---
MS RN OPENING NOTES RECEIVED PATIENT IN BED AWAKE, SITTING. NO SOB NOTED. NO ACUTE DISTRESS NOTED. BREATHING UNLABORED. IV ACCESS PATENT PATENT AND INTACT. NO REDNESS OR SWELLING ON THE SITE. SAFETY MEASURES IN PLACE. CALL LIGHT WITHIN REACH.WILL CONTINUE TO MONITOR ACCORDINGLY.
[2017-08-25 08:00] VITALS: BP 104/63
[2017-08-25 08:22] LABS: BASOPHILS % (AUTO) 0.3 % (0.0-2.0); EOSINOPHILS % (AUTO) 0.4 % (0.0-6.0); HEMATOCRIT 23 % (33-45); HEMOGLOBIN 7.8 g/dL (11.5-14.8); LYMPHOCYTES # (AUTO) 1.1 /CMM (0.8-4.8); LYMPHOCYTES % (AUTO) 11.2 % (20.0-44.0); MEAN CORPUSCULAR HEMOGLOBIN 27 PG (26.0-33.0); MEAN CORPUSCULAR HGB CONC 34 g/dl (31.0-36.0); MEAN CORPUSCULAR VOLUME 79 fL (82-100); MONOCYTES # (AUTO) 0.5 /CMM (0.1-1.30); MONOCYTES % (AUTO) 5.2 % (2.0-12.0); NEUTROPHILS # (AUTO) 8.5 /CMM (1.8-8.9); NEUTROPHILS % (AUTO) 82.9 % (43.0-81.0); PLATELET COUNT (AUTO) 399 /CMM (150-450); RDW COEFFICIENT OF VARIATION 14.6 (11.5-15.0); WHITE BLOOD COUNT (AUTO) 10.2 K/uL (4.3-11.0)
[2017-08-25] MEDS: PANTOPRAZOLE 40 MG VIAL IV SCH ×2 (08:24→17:38)
[2017-08-25] MEDS: LEVOTHYROXINE SODIUM 25 MCG TABLET PO SCH (08:24)
[2017-08-25] MEDS: BOOST FOOD- BERRY 237 ML BOX PO SCH ×2 (08:24→17:39)
[2017-08-25] MEDS: DOCUSATE SODIUM 100 MG CAPSULE PO SCH (08:25)
[2017-08-25] MEDS: ASPIRIN 81 MG TAB.CHEW PO SCH (08:25)
[2017-08-25] MEDS: LACTOBACILLUS RHAMNOSUS GG 1 EACH CAP.SPRINK PO SCH ×2 (08:25→17:38)
[2017-08-25] MEDS: RALOXIFENE 60 MG TABLET PO SCH (08:25)
[2017-08-25] MEDS: CHOLECALCIFEROL 1,000 UNIT TABLET (VIT D3) PO SCH (08:26)
[2017-08-25] MEDS: CLOTRIMAZOLE/BETAMETASONE DIPROPIONATE 15 GM TUBE TP SCH ×2 (08:26→17:34)
[2017-08-25] MEDS: DONEPEZIL 5 MG TABLET PO SCH (08:26)
[2017-08-25] MEDS: MEGESTROL ACETATE SUSP 400 MG/10 ML UDC PO SCH ×2 (08:27→17:38)
[2017-08-25] MEDS: SPIRONOLACTONE 25 MG TABLET PO SCH (08:39)
[2017-08-25] MEDS: CALCIUM CARBONATE (1250) 500 MG TABLET PO SCH ×2 (08:46→17:38)
[2017-08-25 08:52] LABS: CALCIUM, SERUM 7.5 mg/dL (8.5-10.1); CARBON DIOXIDE 20 mmol/L (21-32); CHLORIDE 113 mmol/L (98-107); CREATININE 0.7 mg/dL (0.6-1.3); GLUCOSE 101 mg/dL (74-106); POTASSIUM 3.6 mmol/L (3.5-5.1); SODIUM SERUM 143 mmol/L (136-145); UREA NITROGEN, BLOOD 18 mg/dL (7-18)
--- NOTE | 2017-08-25 10:40 | NUR ---
MS RN NOTES SEEN AND EVALUATED BY ZAID LAU WITH NEW ORDERS MADE. NOTED AND CARRIED OUT.
[2017-08-25] MEDS: BOOST PLUS FOOD-CHOCLATE 237 ML BOX PO SCH ×2 (12:40→17:39)
[2017-08-25] MEDS: GENTAMICIN 80 MG in IV D5W 100 ML IV SCH (14:03)
[2017-08-25 16:00] VITALS: BP 126/66
[2017-08-25] MEDS: RIVAROXABAN 15 MG TABLET PO SCH (17:37)
[2017-08-25] MEDS: PIPERACILLIN /TAZOBACTAM 2.25 G in IV NS 0.9% 50 ML IV SCH ×2 (17:39→23:57)
--- NOTE | 2017-08-25 19:00 | NUR ---
MS RN CLOSING NOTES PATIENT IN BED EYES CLOSED IN BED, HOB ELEBVATED. RESPONSE TO VERBAL AND TACTILE STIMULI. NO SOB NOTED. NO ACUTE DISTRESS NOTED. BREATHING UNLABORED. IV ACCESS PATENT PATENT AND INTACT. NO REDNESS OR SWELLING ON THE SITE.DUE MEDICATIONS GIVEN, NO ASE NOTED. NEEDS ATTENDED. HOB KEPT UP AT ALL TIMES. BLADDER SCAN DONE WITH 121ML URINE. SAFETY MEASURES IN PLACE. CALL LIGHT WITHIN REACH.ENDORSED TO NUT FEEDER NURSE FOR CONTINUITY OF CARE.
--- NOTE | 2017-08-25 19:30 | NUR ---
RN NOTES RECEIVED PATIENT IN BED AWAKE, AO X 1; REPONSIVE TO VOICE AND TOUCH. NO ACUTE DISTRESS NOTED. NO SIGNS OF PAIN NOTED. IV SITE PATENT, INTACT; FLUSHED. ON CONTACT ISOLATION FOR CRE KPNE IN URINE. ON LOW BED WITH BILATERAL UPPER SIDE RAILS UP. CALL BRUCE WITHIN EASY REACH. WILL CONTINUE TO MONITOR.
[2017-08-25 20:00] VITALS: BP 100/57
[2017-08-26] MEDS: IPRATROPIUM NEB FS 0.5 MG/2.5 ML AMPUL.NEB NEB SCH ×4 (01:38→20:19)
[2017-08-26] MEDS: ALBUTEROL FS 2.5 MG/0.5 ML VIAL.NEB NEB SCH ×4 (01:38→20:18)
[2017-08-26] MEDS: PIPERACILLIN /TAZOBACTAM 2.25 G in IV NS 0.9% 50 ML IV SCH ×4 (05:34→23:14)
--- NOTE | 2017-08-26 06:00 | NUR ---
RN NOTES BLADDER SCAN 90 ML RESIDUAL
--- NOTE | 2017-08-26 06:30 | NUR ---
RN NOTES PATIENT ASLEEP, EASILY AROUSABLE. RESPIRATIONS EVEN. NO SIGNS OF PAIN NOTED. DUE MEDS GIVEN WITH NO ASE NOTED. NEEDS ATTENDED. SAFETY PRECAUTIONS AND COMFORT MEASURES IN PLACE. WILL GIVE REPORT TO DAY SHIFT FOR CONTINUITY OF CARE.
--- NOTE | 2017-08-26 07:00 | NUR ---
RN OPENING NOTES RECEIVED PATIENT IN BED EYES CLOSED, AROUSABLE. VERBALLY RESPONSIVE TO VERBAL AND TACTILE STIMULI. HOB ELEVATED.NO SOB NOTED.NO ACUTE DISTRESS NOTED. BREATHING UNLABORED. IV ACCESS PATENT AND INTACT, NO REDNESS OR SWELLING NOTED. SAFETY MEASURES IN PLACE. CALL LIGHT WITHIN REACH. WILL CONTINUE TO MONITOR ACCORDINGLY.
[2017-08-26 07:51] LABS: CALCIUM, SERUM 7.8 mg/dL (8.5-10.1); CARBON DIOXIDE 23 mmol/L (21-32); CHLORIDE 108 mmol/L (98-107); CREATININE 0.8 mg/dL (0.6-1.3); GLUCOSE 82 mg/dL (74-106); POTASSIUM 3.7 mmol/L (3.5-5.1); SODIUM SERUM 140 mmol/L (136-145); UREA NITROGEN, BLOOD 13 mg/dL (7-18)
[2017-08-26] MEDS: LEVOTHYROXINE SODIUM 25 MCG TABLET PO SCH (08:18)
[2017-08-26] MEDS: BOOST PLUS FOOD-CHOCLATE 237 ML BOX PO SCH ×2 (08:19→17:12)
[2017-08-26] MEDS: PANTOPRAZOLE 40 MG VIAL IV SCH ×2 (08:20→17:04)
[2017-08-26] MEDS: RALOXIFENE 60 MG TABLET PO SCH (08:20)
[2017-08-26] MEDS: CHOLECALCIFEROL 1,000 UNIT TABLET (VIT D3) PO SCH (08:20)
[2017-08-26] MEDS: CALCIUM CARBONATE (1250) 500 MG TABLET PO SCH ×2 (08:20→17:05)
[2017-08-26] MEDS: ASPIRIN 81 MG TAB.CHEW PO SCH (08:20)
[2017-08-26] MEDS: BOOST FOOD- BERRY 237 ML BOX PO SCH ×2 (08:20→17:12)
[2017-08-26] MEDS: LACTOBACILLUS RHAMNOSUS GG 1 EACH CAP.SPRINK PO SCH ×2 (08:20→17:04)
[2017-08-26] MEDS: DOCUSATE SODIUM 100 MG CAPSULE PO SCH (08:20)
[2017-08-26] MEDS: CLOTRIMAZOLE/BETAMETASONE DIPROPIONATE 15 GM TUBE TP SCH ×2 (08:21→17:07)
[2017-08-26] MEDS: MEGESTROL ACETATE SUSP 400 MG/10 ML UDC PO SCH ×2 (08:21→17:04)
[2017-08-26] MEDS: DONEPEZIL 5 MG TABLET PO SCH (08:21)
[2017-08-26 08:50] VITALS: BP 102/70
[2017-08-26] MEDS: SPIRONOLACTONE 25 MG TABLET PO SCH (09:00)
--- NOTE | 2017-08-26 10:00 | NUR ---
MS RN NOTES SEEN BY ST , CONTINUE CURRENT DIET ORDERED.
[2017-08-26] MEDS: GENTAMICIN 80 MG in IV D5W 100 ML IV SCH (12:49)
[2017-08-26 16:10] VITALS: BP 98/66
[2017-08-26] MEDS: RIVAROXABAN 15 MG TABLET PO SCH (17:06)
--- NOTE | 2017-08-26 18:00 | NUR ---
RN CLOSING NOTES PATIENT IN BED EYES CLOSED, AROUSABLE. VERBALLY RESPONSIVE TO VERBAL STIMULI. .NO ACUTE DISTRESS NOTED. BREATHING UNLABORED. IV ACCESS PATENT AND INTACT, NO REDNESS OR SWELLING NOTED. HOB ELEVATED. DUE MEDICATIONS GIVEN, NO ASE NOTED. NEEDS ATTENDED.SAFETY MEASURES IN PLACE. CALL LIGHT WITHIN REACH. WILL CONTINUE TO MONITOR ACCORDINGLY.WILL ENDORSE TO MALT HOUSE LOADER FOR CONTINUITY OF CARE.
--- NOTE | 2017-08-26 19:00 | NUR ---
MS RN NOTE: RECEIVE PT FROM BED,,, A/OX1. STABLE, NO ACUTE DISTRESS NOTED. BREATHING EVEN AND UNLABORED, NO SOB NOTED. BED LOCKED AND IN LOWEST POSITION, CALL LIGHT IN REACH. WILL CONTINUE TO MONITOR.
[2017-08-26 20:00] VITALS: BP 94/60
[2017-08-26] MEDS: ATORVASTATIN 10 MG TABLET PO SCH (21:11)
--- NOTE | 2017-08-26 22:45 | NUR ---
MS MARTINEZ NOTES RECEIVED FROM ER ACCOMPANIED BY AMBULANCE CREW AND FAMILY MEMBERS,PER AMBULANCE ANA CRISTINA.PATIENT WAS JUST DISCHARGE TODAY AROUND 3 PM TO HOME.APPARENTLY, FAMILY DONT HAVE OXYGEN TANK AT HOME AND THEY'RE CLAIMING,PATIENT O2 SAT WAS ONLY 87.PATIENT WAS BROUGHT BACK TO [facility] VIA AMBULANCE WHERE IN PATIENT WAS PLACE ON OXYGEN AND MONITORED IN ER FOR FOUR HOURS. Addendum: 08/29/17 at 0202 by RAVIN LANIER RN NOTE NOT ON THIS DATE 08/26/17
[2017-08-27] MEDS: ALBUTEROL FS 2.5 MG/0.5 ML VIAL.NEB NEB SCH ×4 (01:59→20:56)
[2017-08-27] MEDS: IPRATROPIUM NEB FS 0.5 MG/2.5 ML AMPUL.NEB NEB SCH ×4 (01:59→20:56)
[2017-08-27] MEDS: PIPERACILLIN /TAZOBACTAM 2.25 G in IV NS 0.9% 50 ML IV SCH ×3 (05:02→17:58)
[2017-08-27 06:01] LABS: CALCIUM, SERUM 7.7 mg/dL (8.5-10.1); CARBON DIOXIDE 23 mmol/L (21-32); CHLORIDE 108 mmol/L (98-107); CREATININE 0.7 mg/dL (0.6-1.3); GLUCOSE 90 mg/dL (74-106); POTASSIUM 3.7 mmol/L (3.5-5.1); SODIUM SERUM 139 mmol/L (136-145); UREA NITROGEN, BLOOD 12 mg/dL (7-18)
--- NOTE | 2017-08-27 06:32 | NUR ---
MS RN CLOSING NOTES PT COMFORTABLY ASLEEP AND EASILY AWAKEN, ON O2 2LPM VIA NC 02 SAT 98% IN STABLE CONDITION. NOT IN FORM OF DISTRESS, RESPIRATION EVEN AND UNLABORED. KEPT CLEAN AND DRY AND COMFORTABLE, ALL NURSING CARE RENDERED. NEEDS ATTENDED AND ANTICIPATED, FREQUENT VISUAL CHECK DONE FOR SAFETY EVERY 2 HOURS. GOOD SKIN CARE PROVIDED. NO COMPLAINS OF PAIN. ON LOW BED AT ALL TIMES TO ENSURE SAFETY. SAFE HAZARD FREE ENVIRONMENT PROVIDED. CALL LIGHT WITHIN EASY TO REACH. WILL ENDORSE NEXT SHIFT CONTINUITY OF CARE
--- NOTE | 2017-08-27 07:15 | NUR ---
RN OPENING NOTES RECEIVED PT. IN BED A&OX1, RESPONDS TO NAME, BUT DOES NOT VERBALIZE TIME, AND PLACE. BREATHING UNLABORED, AND EVENLY ON OXYGEN AT 3L/MIN VIA NASAL CANNULA. NO S/S OF ACUTE DISTRESS. PT. DENIES PAIN. IV FLUIDS RUNNING AT 75 ML/HR. BED IS IN LOWEST AND LOCKED POSITION. 3 SIDE RAILS UP, AND INSTRUCTED PT. TO USE CALL LIGHT WITHIN REACH FOR ASSISTANCE. ALL NEEDS MET. WILL CONTINUE TO ASSESS AND MONITOR.
--- NOTE | 2017-08-27 07:15 | NUR ---
RN NOTES PT. HAS A RIGHT FOREARM GAUGE 22 S/L. CALL LIGHT IS WITHIN REACH.
[2017-08-27 08:00] VITALS: BP 114/78
[2017-08-27] MEDS: BOOST PLUS FOOD-CHOCLATE 237 ML BOX PO SCH ×2 (08:00→17:00)
--- NOTE | 2017-08-27 08:20 | NUR ---
RN NOTES COLACE WAS NOT GIVEN DUE TO UNABLE TO CRUSH CAPSULE. PT. IS AT HIGH RISK FOR ASPIRATION AND IS ON A PUREE NECTAR THICK LIQUID DIET.
[2017-08-27] MEDS: DOCUSATE SODIUM 100 MG CAPSULE PO SCH (09:00)
[2017-08-27] MEDS: CALCIUM CARBONATE (1250) 500 MG TABLET PO SCH ×2 (10:47→17:57)
[2017-08-27] MEDS: LEVOTHYROXINE SODIUM 25 MCG TABLET PO SCH (10:47)
[2017-08-27] MEDS: PANTOPRAZOLE 40 MG VIAL IV SCH ×2 (10:47→17:57)
[2017-08-27] MEDS: MEGESTROL ACETATE SUSP 400 MG/10 ML UDC PO SCH ×2 (10:47→17:00)
[2017-08-27] MEDS: LACTOBACILLUS RHAMNOSUS GG 1 EACH CAP.SPRINK PO SCH ×2 (10:48→17:00)
[2017-08-27] MEDS: SPIRONOLACTONE 25 MG TABLET PO SCH (10:48)
[2017-08-27] MEDS: CHOLECALCIFEROL 1,000 UNIT TABLET (VIT D3) PO SCH (10:48)
[2017-08-27] MEDS: RALOXIFENE 60 MG TABLET PO SCH (10:48)
[2017-08-27] MEDS: ASPIRIN 81 MG TAB.CHEW PO SCH (10:48)
[2017-08-27] MEDS: CLOTRIMAZOLE/BETAMETASONE DIPROPIONATE 15 GM TUBE TP SCH ×2 (10:49→17:58)
[2017-08-27] MEDS: DONEPEZIL 5 MG TABLET PO SCH (10:49)
[2017-08-27] MEDS: BOOST FOOD- BERRY 237 ML BOX PO SCH ×2 (10:51→17:00)
[2017-08-27 12:00] LABS: BASOPHILS # (AUTO) 0.1 /CMM (0.0-0.2); EOSINOPHILS # (AUTO) 0.1 /CMM (0.0-0.7); EOSINOPHILS % (AUTO) 0.7 % (0.0-6.0); HEMATOCRIT 27 % (33-45); HEMOGLOBIN 8.7 g/dL (11.5-14.8); LYMPHOCYTES # (AUTO) 2.2 /CMM (0.8-4.8); LYMPHOCYTES % (AUTO) 21.6 % (20.0-44.0); MEAN CORPUSCULAR HEMOGLOBIN 26 PG (26.0-33.0); MEAN CORPUSCULAR HGB CONC 33 g/dl (31.0-36.0); MEAN CORPUSCULAR VOLUME 80 fL (82-100); MONOCYTES # (AUTO) 0.8 /CMM (0.1-1.30); MONOCYTES % (AUTO) 7.8 % (2.0-12.0); NEUTROPHILS # (AUTO) 7.2 /CMM (1.8-8.9); NEUTROPHILS % (AUTO) 68.9 % (43.0-81.0); PLATELET COUNT (AUTO) 337 /CMM (150-450); RDW COEFFICIENT OF VARIATION 14.5 (11.5-15.0); RED BLOOD CELL COUNT(AUTO) 3.31 MIL/uL (4.0-5.2); WHITE BLOOD COUNT (AUTO) 10.4 K/uL (4.3-11.0)
--- NOTE | 2017-08-27 13:00 | NUR ---
RN NOTES PT. DID NOT CONSUME ANY OF HER LUNCH FROM THE LUNCH TRAY. 0% PO INTAKE.
[2017-08-27] MEDS: GENTAMICIN 80 MG in IV D5W 100 ML IV SCH (13:34)
[2017-08-27] MEDS: ONDANSETRON HCL/PF 4 MG/2 ML VIAL IVP PRN (15:58)
[2017-08-27 16:00] VITALS: BP 119/76
--- NOTE | 2017-08-27 16:25 | NUR ---
RN NOTES RESPITAORY THERAPIST CONTACTED PT. WAS COUGHING AND HAD A LOUD GURGLING SOUND TO HER BREATHING AND WHILE COUGHING. PT. WAS SUCTIONED 3 TIMES. RT CAME UP AND SUCTIONED THE PATIENT WITH A NAMIBIAN 14 SUCTION, AND PROVIDED A BREATHING TREATMENT. PT. HAD CLEAR BREATH SOUNDS, AND HAD NO S/S OF RESPIRATORY DISTRESS.
[2017-08-27] MEDS: RIVAROXABAN 15 MG TABLET PO SCH (17:00)
--- NOTE | 2017-08-27 18:00 | NUR ---
RN NOTES PT. REFUSED TO CONSUME HER DINNER. PT. WAS ENCOURAGED TO EAT, AND REFUSED TO EAT. PT. HAD 0% OF PO INTAKE.
--- NOTE | 2017-08-27 19:08 | NUR ---
RN CLOSING NOTES PT. IN BED A&OX1, RESPONDS TO NAME, BUT DOES NOT VERBALIZE TIME, AND PLACE. BREATHING UNLABORED, AND EVENLY ON OXYGEN AT 2L/MIN VIA NASAL CANNULA. NO S/S OF ACUTE DISTRESS. IV ANTIBIOTICS RUNNING VIA IV ON RIGHT FOREARM. BED IS IN LOWEST AND LOCKED POSITION. 3 SIDE RAILS UP, AND CALL LIGHT WITHIN REACH. ALL NEEDS MET. WILL ENDORSE REPORT TO NURSE.
[2017-08-27 20:00] VITALS: BP 105/66
[2017-08-27] MEDS: ATORVASTATIN 10 MG TABLET PO SCH (21:46)
[2017-08-28] MEDS: PIPERACILLIN /TAZOBACTAM 2.25 G in IV NS 0.9% 50 ML IV SCH ×3 (00:10→13:29)
[2017-08-28] MEDS: ALBUTEROL FS 2.5 MG/0.5 ML VIAL.NEB NEB SCH ×3 (02:40→12:30)
[2017-08-28] MEDS: IPRATROPIUM NEB FS 0.5 MG/2.5 ML AMPUL.NEB NEB SCH ×3 (02:40→12:30)
--- NOTE | 2017-08-28 06:43 | NUR ---
MS RN NOTES AWAKE & ALERT. NOT IN ANY DISTRESS. NO SOB NOTED. DENIES ANY PAIN OR DISCOMFORT AT THIS TIME. WITH IV-HL PATENT & INTACT. AM CARE DONE. MONITORED ACCORDINGLY. CALL LIGHT WITHIN REACH. BED IN LOWEST POSITION. SR UP X 2 FOR SAFETY. WILL ENDORSE TO NEXT SHIFT.
[2017-08-28 07:42] LABS: CALCIUM, SERUM 8.8 mg/dL (8.5-10.1); CARBON DIOXIDE 26 mmol/L (21-32); CHLORIDE 106 mmol/L (98-107); CREATININE 0.8 mg/dL (0.6-1.3); GLUCOSE 87 mg/dL (74-106); POTASSIUM 3.8 mmol/L (3.5-5.1); SODIUM SERUM 139 mmol/L (136-145); UREA NITROGEN, BLOOD 12 mg/dL (7-18)
[2017-08-28 08:00] VITALS: BP 97/62
[2017-08-28] MEDS: MEGESTROL ACETATE SUSP 400 MG/10 ML UDC PO SCH (09:15)
[2017-08-28] MEDS: DONEPEZIL 5 MG TABLET PO SCH (09:15)
[2017-08-28] MEDS: PANTOPRAZOLE 40 MG VIAL IV SCH (09:15)
[2017-08-28] MEDS: LACTOBACILLUS RHAMNOSUS GG 1 EACH CAP.SPRINK PO SCH (09:15)
[2017-08-28] MEDS: RALOXIFENE 60 MG TABLET PO SCH (09:15)
[2017-08-28] MEDS: CALCIUM CARBONATE (1250) 500 MG TABLET PO SCH (09:15)
[2017-08-28] MEDS: SPIRONOLACTONE 25 MG TABLET PO SCH (09:15)
[2017-08-28] MEDS: DOCUSATE SODIUM 100 MG CAPSULE PO SCH (09:15)
[2017-08-28] MEDS: LEVOTHYROXINE SODIUM 25 MCG TABLET PO SCH (09:15)
[2017-08-28] MEDS: CHOLECALCIFEROL 1,000 UNIT TABLET (VIT D3) PO SCH (09:15)
[2017-08-28] MEDS: ASPIRIN 81 MG TAB.CHEW PO SCH (09:15)
[2017-08-28] MEDS: BOOST PLUS FOOD-CHOCLATE 237 ML BOX PO SCH (09:16)
[2017-08-28] MEDS: BOOST FOOD- BERRY 237 ML BOX PO SCH (09:28)
[2017-08-28] MEDS: CLOTRIMAZOLE/BETAMETASONE DIPROPIONATE 15 GM TUBE TP SCH (09:29)
--- NOTE | 2017-08-28 09:35 | NUR ---
MS RN NOTES PATIENT IN BED, AWAKE, REFUSING TO OPEN EYES, ABLE TO SPEAK AND ANSWER SIMPLE QUESTION WHEN ASKED. ON OXYGEN AT 2L VIA NC, BREATHING NON LABORED, NO SOB. IVC IN RIGHT HAND G24 PATENT AND INTACT, FLUSHES WELL. ABLE TO SWALLOW MEDICATIONS WITH PERIOD OF TIME, ASPIRATION PRECAUTION MAINTAIN. CALL LIGHT WITHIN REACH. CAREGIVER AT THE BEDSIDE.
--- NOTE | 2017-08-28 10:05 | NUR ---
COPIES OF [facility] DIRECTIVE AVAILABLE IN THE PATIENT'S CHART. CALLED SPOKE TO DAUGHTER, PRUDENCE AUSTIN. VERIFIED DNR/DNI PATIENT'S STATUS WITH DAUGHTER PRUDENCE AUSTIN, WITNESSED BY ANOTHER RN/OBED ON THE HOSPITAL PHONE. INFORMED SECRETARIAL TEACHER-JUDI.
--- NOTE | 2017-08-28 12:04 | NUR ---
PATIENT TO BE DISCHARGED HOME ORDERED, FAMILY INFORMED.
[2017-08-28 12:58] VITALS: BP 100/58
[2017-08-28 16:12] VITALS: BP 105/62
--- NOTE | 2017-08-28 16:53 | NUR ---
MS RN DISCHARGED PATIENT HAS BEEN CLEARED FOR DISCHARGE BY . VS REMAINS STABLE, AFEBRILE DURING THE SHIFT. IVC IN RIGHT HAND REMOVED, GAUZE APPLIED, NO BLEEDING NOTED. DISCHARGE INSTRUCTION GIVEN TO THE PATIENT, VERBALIZED UNDERSTANDING. BELONGINGS CHECKED AND PRESCRIPTION SEND WITH THE PATIENT UPON DC. PATIENT LEFT HOSP IN STABLE CONDITION VIA AMBULANCE.
[2017-08-28 22:45] VITALS: BP 118/71
--- NOTE | 2017-08-28 22:45 | NUR ---
MS RN NOTES RECEIVED FROM ER ACCOMPANIED BY AMBULANCE CREW AND FAMILY MEMBERS,PER AMBULANCE ANA CRISTINA.PATIENT WAS JUST DISCHARGE TODAY AROUND 3 PM TO HOME.APPARENTLY, FAMILY DONT HAVE OXYGEN TANK AT HOME AND THEY'RE CLAIMING,PATIENT O2 SAT WAS ONLY 87.PATIENT WAS BROUGHT BACK TO [facility] VIA AMBULANCE WHERE IN PATIENT WAS PLACE ON OXYGEN AND MONITORED IN ER FOR FOUR HOURS.
--- NOTE | 2017-08-28 23:00 | NUR ---
RN NOTES PATIENT WAS BROUGHT TO THE UNIT BY AMBULANCE CREW FROM ER,ON OXYGEN 8L NON RE BREATHER MASK,O2 SAT 95%.PATIENT NON VERBAL,BREATHING NON LABORED.PLACE ON O2 AT 8 LITERS,SUCTION ORALLY NEEDED.NEW SALINE LOCK #22 PLACE ON RIGHT FORE ARM BY JASVIR MARTINEZ.KEPT ON UPRIGHT POSITION FOR MAXIMUM OXYGENATION.PATIENT ALSO HIGH RISK FOR ASPIRATION.WILL CONTINUE TO MONITOR SATURATION.
--- NOTE | 2017-08-28 23:30 | NUR ---
MS RN NOTES MD ARCHIVIST ECONOMIC HISTORY DR LIPSCOMB WAS PAGE AND SPOKE TO HIM ABOUT PATIENT STATUS READMISSION.SOUND UPSET THAT NOBODY CALL HIM ABOUT THIS PATIENT.BY THIS TIME HE WANT THE MULTIMEDIA MANAGER TO CALL HIM WHATS GOING ON REGARDING THIS PATIENT.STACY WAS THEN NOTIFIED,GAVE NUMBER OF EXCHANGE TO JO-ANN LIPSCOMB.
--- NOTE | 2017-08-28 23:45 | NUR ---
MS RN NOTES STACY CALLED AND SPOKE TO MURTAZA TAY TO CALL ADMITTING TO RE INSTATE PATIENT PREVIOUS ORDERS,AND FOR THE NURSE TO CANCELL DISCHARGE.PATIENT WILL STAY OVERNIGHT FOR OXYGEN SATURATION MONITORING.
[2017-08-29 02:16] VITALS: BP 98/66
--- NOTE | 2017-08-29 06:22 | NUR ---
MS RN NOTES KEPT ON UPRIGHT POSITION,O2 15L VIA NRM,96% O2 SAT,SINUS TACH 114.DNR /DNI.POSSIBLE DISCHARGE ONCE ONCE HOME O2 IS AVAILABLE.WILL ENDORSE TO DAY NURSE FOR JEMMA.
[2017-08-29] MEDS: LEVOTHYROXINE SODIUM 25 MCG TABLET PO SCH (07:30)
--- NOTE | 2017-08-29 07:30 | NUR ---
RN NOTES PATIENT OPENS EYES, ON NON-REBREATHER MASK AT 8LPM WITH O2 SATURATION OF 88%, INCREASED O2 TO 15LPM VIA NRB MASK AND O2 SATURATION INCREASED TO 94-96%. PATIENT OBSERVED COUGHING AND CONGESTED. RT CALLED. BP LOW. WILL CONTINUE TO MONITOR.
[2017-08-29 08:00] VITALS: BP 129/74
[2017-08-29] MEDS: BOOST PLUS FOOD-CHOCLATE 237 ML BOX PO SCH ×2 (08:00→16:18)
[2017-08-29] MEDS: BOOST FOOD- BERRY 237 ML BOX PO SCH ×2 (08:00→16:18)
[2017-08-29] MEDS: IPRATROPIUM NEB FS 0.5 MG/2.5 ML AMPUL.NEB NEB SCH ×3 (08:20→20:06)
[2017-08-29] MEDS: ALBUTEROL FS 2.5 MG/0.5 ML VIAL.NEB NEB SCH ×3 (08:20→20:06)
[2017-08-29] MEDS: ASPIRIN 81 MG TAB.CHEW PO SCH (09:00)
[2017-08-29] MEDS: CHOLECALCIFEROL 1,000 UNIT TABLET (VIT D3) PO SCH (09:00)
[2017-08-29] MEDS: PANTOPRAZOLE 40 MG VIAL IV SCH ×3 (09:00→16:28)
[2017-08-29] MEDS: CLOTRIMAZOLE/BETAMETASONE DIPROPIONATE 15 GM TUBE TP SCH ×2 (09:00→16:18)
[2017-08-29] MEDS: LACTOBACILLUS RHAMNOSUS GG 1 EACH CAP.SPRINK PO SCH ×2 (09:00→16:18)
[2017-08-29] MEDS: DONEPEZIL 5 MG TABLET PO SCH (09:00)
[2017-08-29] MEDS: SPIRONOLACTONE 25 MG TABLET PO SCH (09:00)
[2017-08-29] MEDS: MEGESTROL ACETATE SUSP 400 MG/10 ML UDC PO SCH ×2 (09:00→16:18)
[2017-08-29] MEDS: DOCUSATE SODIUM 100 MG CAPSULE PO SCH (09:00)
[2017-08-29] MEDS: CALCIUM CARBONATE (1250) 500 MG TABLET PO SCH ×2 (09:00→16:18)
[2017-08-29] MEDS: RALOXIFENE 60 MG TABLET PO SCH (09:00)
--- NOTE | 2017-08-29 11:05 | NUR ---
RN NOTES PATIENT'S MEDICATIONS HELD. PATIENT IS A HIGH RISK FOR ASPIRATION, PATIENT IS NOT FULLY AWAKE. PATIENT IS RESPONSIVE TO STIMULI, BUT DOES NOT OPEN EYES FULLY. ST CAME AND RE-ASSESSED PATIENT, RECOMMENDED TO KEEP PATIENT NPO AT THIS TIME. WILL DISCUSS WITH MD.
[2017-08-29] MEDS ORDERED: IV D5/ 0.9% NACL 1,000 ML IV PRN (12:30)
[2017-08-29] MEDS: ACETAMINOPHEN 650 MG/SUPP.RECT RC PRN (12:45)
[2017-08-29] MEDS: PIPERACILLIN /TAZOBACTAM 2.25 G in IV NS 0.9% 50 ML IV SCH ×2 (12:50→17:30)
[2017-08-29 16:00] VITALS: BP 88/52
[2017-08-29] MEDS: RIVAROXABAN 15 MG TABLET PO SCH (16:17)
--- NOTE | 2017-08-29 17:56 | NUR ---
RN NOTES PATIENT IS READY FOR DISCHARGE, PRUDENCE DAUGHTER RECEIVED DISCHARGE INSTRUCTIONS AND VERBALIZED UNDERSTANDING. ROXANNE PLANT SUPERVISOR DISCUSSED PATIENT'S STATUS AND HOSPICE EVAL WHEN PATIENT IS DISCHARGED. PATIENT ASLEEP, WITH MOANING AND COUGHING AT TIMES. UNABLE TO SIGN DISCHARGE PAPERWORKS, WITNESSED BY ANOTHER RN OPHELIA. BELONGINGS RECONCILED AND COMPLETE. WAITING FOR HOSPICE COMPANY TO DELIVER DME'S NEEDED, THEN WILL ARRANGE TRANSPORTATION FOR DISCHARGE. SKIN ASSESSMENT COMPLETED, NO CHANGES, PHOTOS UPTODATE. WILL CONTINUE TO MONITOR.
[2017-08-29] MEDS ORDERED: BISACODYL SUPP (10 MG) 10 MG/SUPP.RECT SUPP.RECT RC ONE (18:00)
--- NOTE | 2017-08-29 18:59 | NUR ---
RN NOTES PATIENT IS WAITING FOR TRANSPORTATION, PER DAUGHTER HOSPICE [facility] HAS ALREADY SET UP ALL THE DME'S AT HOME. MINESH PICK PULLING MACHINE TENDER MADE AWARE. NOW WE'RE JUST WAITING FOR TRANSPORTATION TIME. PATIENT IS STILL ON 15LPM VIA NRB. HAD A SMALL BM X1, STILL ON IVF AT D5NS AT 75ML/HR. PATIENT SUCTIONED PRN. NEEDS ATTENDED AND MET, KEPT PATIENT COMFORTABLE, WILL ENDORSE TO DIE REPAIRER FORGING FOR JEMMA.
[2017-08-29 20:00] VITALS: BP 90/52
--- NOTE | 2017-08-29 20:00 | NUR ---
MS RN NOTE: PATIENT RESTING IN BED, NO ACUTE DISTRESS NOTED, CAREGIVER AT BESIDE. BREATHING EVEN AND UNLABORED, NO SOB NOTED. NON REBREATHING IN PLACE AT 15 LPM. IV TO RFA IN PLACE, INFUSING D5NS AT 75 ML/HR. PATIENT TO BE DISCHARGED TONIGHT BACK HOME WITH HOSPICE TO [facility]. DISCHARGE PAPERWORK COMPLETED DURING DAYSHIFT. VP [employer] TIME AT 2100. BED LOCKED AND IN LOWEST POSITION, CALL LIGHT IN REACH. WILL CONTINUE TO MONITOR.
--- NOTE | 2017-08-29 21:45 | NUR ---
MS RN NOTE: PATIENT TO BE DISCHARGE HOME WITH DEDICATED HOSPICE TO EVALUATE PATIENT TONIGHT. EMT GIVEN REPORT AND COPY OF ADVANCE DIRECTIVE FOR DNR/DNI. IV TO RIGHT FOREARM REMOVED, COVERED WITH GAUZE, PRESSURE APPLIED, AND SECURE WITH TAPE. DISCHARGE PAPERWORK GIVEN TO PATIENT DAUGHTER WITH PATIENT BELONGINGS. PER PATIENT DAUGHTER OXYGEN CONCENTRATOR ALREADY DELIVERED TO HOME. PATIENT OFF FLOOR NO ACUTE DISTRESS NOTED.
== END 2017-08-29 21:30 | disposition hospice, home (50) | DRG 871 ==
LOC: ER 07:52 → TELE 10:19 → MED 08-19 09:51 → UNDODISIN 08-28 16:55 → MEDSG2 08-29 01:38
PROVIDERS: ADMIT Nurse Practitioner Acute Care; ATTEND Nurse Practitioner Acute Care
PROC: 0DBP8ZX Excision of Rectum, Via Natural or Artificial Opening Endoscopic, Diagnostic (ICD-10-PCS; principal; 2017-08-19 12:25)
PROC: 0DB68ZX Excision of Stomach, Via Natural or Artificial Opening Endoscopic, Diagnostic (ICD-10-PCS; 2017-08-19 12:25)
DX: A41.9 Sepsis, unspecified organism (principal); G93.40 Encephalopathy, unspecified; J69.0 Pneumonitis due to inhalation of food and vomit; N17.0 Acute kidney failure with tubular necrosis; E44.0 Moderate protein-calorie malnutrition; K86.2 Cyst of pancreas; E11.65 Type 2 diabetes mellitus with hyperglycemia; I48.91 Unspecified atrial fibrillation; D62 Acute posthemorrhagic anemia; N39.0 Urinary tract infection, site not specified; K51.30 Ulcerative (chronic) rectosigmoiditis without complications; I50.30 Unspecified diastolic (congestive) heart failure; L89.621 Pressure ulcer of left heel, stage 1; L89.611 Pressure ulcer of right heel, stage 1; E78.5 Hyperlipidemia, unspecified; E03.9 Hypothyroidism, unspecified; I10 Essential (primary) hypertension; F01.50 Vascular dementia, unspecified severity, without behavioral disturbance, psychotic disturbance, mood disturbance, and anxiety; Z90.710 Acquired absence of both cervix and uterus; Z86.711 Personal history of pulmonary embolism; Z79.01 Long term (current) use of anticoagulants; K64.4 Residual hemorrhoidal skin tags; Z90.49 Acquired absence of other specified parts of digestive tract; Z79.82 Long term (current) use of aspirin; Z79.899 Other long term (current) drug therapy; I25.2 Old myocardial infarction; F32.9 Major depressive disorder, single episode, unspecified; K21.9 Gastro-esophageal reflux disease without esophagitis; K59.00 Constipation, unspecified; D63.8 Anemia in other chronic diseases classified elsewhere; F29 Unspecified psychosis not due to a substance or known physiological condition; M81.0 Age-related osteoporosis without current pathological fracture; L30.4 Erythema intertrigo; K29.70 Gastritis, unspecified, without bleeding; D47.3 Essential (hemorrhagic) thrombocythemia; K44.9 Diaphragmatic hernia without obstruction or gangrene; R13.10 Dysphagia, unspecified
CPT/HCPCS: 31720; 36415; 71045-TC; 80048-TC; 80061-TC; 80076-TC; 80170-TC; 81000-TC; 83605-TC; 83690-TC; 83735-TC; 84100-TC; 84443-TC; 84484-TC; 85025-TC; 85027-TC; 85730-TC; 86850-TC; 87040-TC; 87081-TC; 87086-TC; 87186-TC; 87400; 88305-TC; 88313-TC; 88342; 92526; 92611-TC; 93307-TC; 93970-TC; 94799-TC; A4216; A4606; A6402; C9113; J0696; J1580; J1956; J2405; J2543; J2704; J3490; J7030; J7040; J7042; J7050; J7060; Z7610